=== PATIENT | male | born 1955 | race Caucasian/White ===

== ENCOUNTER 2017-03-22 07:42 | Emergency (ER) | payer SELFPAY ==
[~2017-03-22] VITALS: Ht 167.6 cm; Wt 80.0 kg
[2017-03-22 07:46] VITALS: BP 164/124; PULSE 89; RESP 16; TEMP 98.4; O2SAT 98
[2017-03-22 08:31] LABS: BLOOD, URINE NEG (NEG); GLUCOSE,URINE NEG (NEG); KETONE, URINE 10 mg/dL (NEG); MUCUS URINE MOD /lpf (OCC); NITRITE,URINE NEG (NEG); PH, URINE 5.5 (5.0-8.5); SQUAMOUS EPITHELIAL CELL URINE <1 /hpf (0-5); URINE COLOR YELLOW (YELLW/STRAW)
[2017-03-22 08:32] LABS: COMMENT (UR) CULT NOT INDICATED; CULTURE IF INDICATED CULT NOT INDICATED
[2017-03-22 08:34] LABS: AUTOMATED NEUTROPHIL # 6.4 TH/MM3 (1.8-7.7); BASOPHIL # 0.1 TH/MM3 (0-0.2); BASOPHIL % 0.8 % (0.0-2.0); EOSINOPHIL # 0.1 TH/MM3 (0-0.4); EOSINOPHIL % 0.8 % (0.0-4.0); HEMATOCRIT 43.8 % (39.0-51.0); HEMO FLAGS DIFF FINAL; LYMPH % 17.9 % (9.0-44.0); LYMPHOCYTE # 1.6 TH/MM3 (1.0-4.8); MEAN CELL VOLUME 86.1 FL (80.0-100.0); MEAN CORPUSCULAR HEMOGLOBIN 30.2 PG (27.0-34.0); MEAN CORPUSCULAR HGB CONC 35.1 % (32.0-36.0); MONO % 9.7 % (0.0-8.0); NEUT % 70.8 % (16.0-70.0); PLATELET COUNT 153 TH/MM3 (150-450); RED BLOOD COUNT 5.08 MIL/MM3 (4.50-5.90); RED CELL DISTRIBUTION WIDTH 14.1 % (11.6-17.2)
[2017-03-22 08:44] LABS: BICARBONATE 22.7 MEQ/L (21.0-32.0); POTASSIUM 4.1 MEQ/L (3.5-5.1)
--- NOTE | 2017-03-22 09:02 | PD ---
HPI Chief Complaint: Psychiatric Symptoms Time Seen by Provider: 09:02 Travel History International Travel<30 days: No Contact w/Intl Traveler<30days: No Traveled to known affect area: No History of Present Illness HPI 61-year-old male came to the emergency room with history of mood swings that out -of-control, nightmares and occasionally hearing voices for past few days. Patient says he was discharged from the long-term and was started on some new medications for his bipolar disorder and not agreeing with him. He used to be on divalproex and trazodone. For some reason those were stopped and he was started on different medications. He does not have a psychiatrist or primary care physician. No suicidal or homicidal ideations. Vital signs otherwise stable. [facility] Past Medical History Narrative Medical List of his past medical, surgical, social and family history reviewed from the nursing note. Hx Anticoagulant Therapy: No ADD: Yes ADHD: Yes Asthma: Yes Bipolar Disorder: Yes Depression: Yes Cardiovascular Problems: No Chemotherapy: No COPD: Yes Cerebrovascular Accident: No Diabetes: No Diminished Hearing: No Respiratory: Yes (COPD) Immunizations Current: Yes Past Surgical History Hysterectomy: No Social History Alcohol Use: Yes Tobacco Use: Yes (2 PPD) Substance Use: No (UNABLE TO ASSESS) Allergies-Medications (Allergen,Severity, Reaction): Coded Allergies: No Known Allergies (Unverified , 03/22/17) Comments No known drug allergies. Reported Meds & Prescriptions Reported Meds & Active Scripts Active Depakote DR (Divalproex Sodium) 500 Mg Tabdr 500 Mg PO DAILY PRN 14 Days Trazodone (Trazodone HCl) 150 Mg Tablet 150 Mg PO HS PRN 14 Days Reported Trazodone (Trazodone HCl) 150 Mg Tablet 150 Mg PO HS Depakote DR (Divalproex Sodium) 500 Mg Tabdr 500 Mg PO BID Narrative Medication List of his home medications reviewed from the nursing note. Review of Systems Except as stated in HPI: all other systems reviewed are Neg Physical Exam Narrative GENERAL: Awake, alert, no obvious distress SKIN: Focused skin assessment warm/dry. HEAD: Atraumatic. Normocephalic. EYES: Pupils equal and round. No scleral icterus. No injection or drainage. ENT: No nasal bleeding or discharge. Mucous membranes pink and moist. NECK: Trachea midline. No JVD. CARDIOVASCULAR: Regular rate and rhythm. No murmur appreciated. RESPIRATORY: No accessory muscle use. Clear to auscultation. Breath sounds equal bilaterally. GASTROINTESTINAL: Abdomen soft, non-tender, nondistended. Hepatic and splenic margins not palpable. MUSCULOSKELETAL: No obvious deformities. No clubbing. No cyanosis. No edema. NEUROLOGICAL: Awake and alert. No obvious cranial nerve deficits. Motor grossly within normal limits. Normal speech. PSYCHIATRIC: Appropriate mood and affect; insight and judgment normal. Data Data Last Documented VS Vital Signs Date Time Temp Pulse Resp B/P (MAP) Pulse Ox O2 Delivery O2 Flow Rate FiO2 03/22/17 11:05 59 17 157/77 (103) 97 03/22/17 09:09 97.8 Room Air Orders Orders Complete Blood Count With Diff (03/22/17 08:04) Basic Metabolic Panel (Bmp) (03/22/17 08:04) Drug Screen, Random Urine (03/22/17 08:04) Urinalysis - C+S If Indicated (03/22/17 08:04) Psych Screen (03/22/17 10:07) Labs Laboratory Tests Test 03/22/17 08:15 03/22/17 08:20 03/23/17 17:20 Urine Color YELLOW Urine Turbidity HAZY Urine pH 5.5 Urine Specific [place] 1.033 Urine Protein TRACE mg/dL Urine Glucose (UA) NEG mg/dL Urine Ketones 10 mg/dL Urine Occult Blood NEG Urine Nitrite NEG Urine Bilirubin NEG Urine Urobilinogen 2.0 MG/DL Urine Leukocyte Esterase NEG Urine RBC LESS THAN 1 /hpf Urine WBC 1 /hpf Urine Squamous Epithelial Cells <1 /hpf Urine Amorphous Sediment RARE Urine Mucus MOD /lpf Microscopic Urinalysis Comment CULT NOT INDICATED Urine Opiates Screen NEG Urine Barbiturates Screen NEG Urine Amphetamines Screen NEG Urine Benzodiazepines Screen NEG Urine Cocaine Screen NEG Urine Cannabinoids Screen POS White Blood Count 9.0 TH/MM3 Red Blood Count 5.08 MIL/MM3 Hemoglobin 15.3 GM/DL Hematocrit 43.8 % Mean Corpuscular Volume 86.1 FL Mean Corpuscular Hemoglobin 30.2 PG Mean Corpuscular Hemoglobin Concent 35.1 % Red Cell Distribution Width 14.1 % Platelet Count 153 TH/MM3 Mean Platelet Volume 9.7 FL Neutrophils (%) (Auto) 70.8 % Lymphocytes (%) (Auto) 17.9 % Monocytes (%) (Auto) 9.7 % Eosinophils (%) (Auto) 0.8 % Basophils (%) (Auto) 0.8 % Neutrophils # (Auto) 6.4 TH/MM3 Lymphocytes # (Auto) 1.6 TH/MM3 Monocytes # (Auto) 0.9 TH/MM3 Eosinophils # (Auto) 0.1 TH/MM3 Basophils # (Auto) 0.1 TH/MM3 CBC Comment DIFF FINAL Differential Comment Blood Urea Nitrogen 18 MG/DL Creatinine 0.92 MG/DL Random Glucose 95 MG/DL Calcium Level 8.9 MG/DL Sodium Level 139 MEQ/L Potassium Level 4.1 MEQ/L Chloride Level 106 MEQ/L Carbon Dioxide Level 22.7 MEQ/L Anion Gap 10 MEQ/L Estimat Glomerular Filtration Rate 83 ML/MIN Lab Scanned Report Lab Reports - Other [id number] [facility] Medical Decision Making Medical Screen Exam Complete: Yes Emergency Medical Condition: Yes Medical Record Reviewed: Yes Differential Diagnosis Prescription refill, medication adjustment Narrative Course 10:30 AM patient was seen by the psych nurse practitioner. She has given the prescription refills. Patient had blood test done and medically cleared earlier. Patient has been given [facility] information and been told to go there tomorrow morning to get checked. He will be discharged home. Procedures EKG Prior to Arrival: No Diagnosis Primary Impression: Prescription refill Additional Impression: Mood swings Referrals: Primary Care Physician Additional Instructions: Please fill the medication prescription that has been given to you from the emergency room. Go to [facility] as per the directions given to you from the emergency room. Return to the ER if the symptoms worsen on any other new concerns. Do not take the other psych medications that were given to you previously from long-term. Med/Other Pt SpecificInfo: Prescription(s) given Scripts Divalproex DR (Depakote DR) 500 Mg Tabdr 500 MG PO DAILY Y for ANXIETY AND/OR AGITATION for 14 Days, #15 TAB 0 Refills Prov: FlynnHaleys Denise Dowell [facility] 03/22/17 Trazodone (Trazodone) 150 Mg Tablet 150 MG PO HS Y for ANXIETY AND/OR AGITATION for 14 Days, #30 TAB 0 Refills Prov: Flynn,Alma Rosa Denise Dowell [facility] 03/22/17 Disposition: 01 DISCHARGE HOME Condition: Stable Jonathan Joy MD Mar 22, 2017 09:02
[2017-03-22] MEDS ORDERED: TRAZ1TAB45 PO ×2 (09:08→10:24)
[2017-03-22] MEDS ORDERED: DEPA500T PO ×2 (09:08→10:26)
[2017-03-22 09:09] VITALS: BP 158/78; PULSE 76; RESP 19; TEMP 97.8; O2SAT 98
--- NOTE | 2017-03-22 10:21 | PD ---
History of Present Illness Chief Complaint: Psychiatric Symptoms Time Seen by Provider: 10:10 Travel History International Travel<30 Days: No Contact w/Intl Traveler<30days: No Known affected area: No Legal Status Legal Status: Voluntary History of Present Illness: History of Present Illness HPI 61 year old male with psychiatric history of bipolar disorder, mixed, ADHD, released from care home a few days ago who is here for his refill on his psychiatric medications. Reports that he has been stable on Trazodone and Depakote prior to being incarcerated but that he was not given these medications while in care home. He was released from care home with out medication. EMR reviewed. Seen with Refugio, case briefer. He is calm, engaging and cooperative. Casually dressed and maintaining basic hygiene. States that when he does not take his medication he feels like his brain is confused and " jumbled, like a bowl of spaghetti". Speech is clear, logical, normal tone and rhythm. No pressure. No rhett or hypomania. Not depressed. No hallucinations. No suicdal or homicidal ideation, intent or plan. Not agitated but reports feeling on edge. He wants a prescription until he can be seen at [facility] where he has had treatment in the past. Denies that he is using any alcohol. Current toxicology is positive for cannabinoids. PFSH Past Medical History Hx Anticoagulant Therapy: No ADD: Yes ADHD: Yes Asthma: Yes Bipolar Disorder: Yes Depression: Yes Cardiovascular Problems: No Chemotherapy: No COPD: Yes Cerebrovascular Accident: No Diabetes: No Diminished Hearing: No Respiratory: Yes (COPD) Immunizations Current: Yes Past Surgical History Hysterectomy: No Psychiatric History Psychiatric History Hx Psychiatric Treatment: Last seen at [facility] for 7 days in Feb 2016. History of Inpatient Treatment: Yes Guns or firearms in home: No Social History Single male, homeless. Works for [employer]. Hx Alcohol Use: Yes Hx Tobacco Use: Yes (2 PPD) Hx Substance Use: Yes (marijuana last night) Substance Use Type: Alcohol, Marijuana Other Substances Used: States he has had multiple detox admissions but cannot say where or when Hx of Substance Use Treatment: Yes Family Psychiatric History None reported Allergies-Medications (Allergen,Severity, Reaction): Coded Allergies: No Known Allergies (Unverified , 03/22/17) Reported Meds & Prescriptions Reported Meds & Active Scripts Active Reported Trazodone (Trazodone HCl) 150 Mg Tablet 150 Mg PO HS Depakote DR (Divalproex Sodium) 500 Mg Tabdr 500 Mg PO BID Review of Systems Except as stated in HPI: all other systems reviewed are Neg Exam Alert: Yes [place]: Person (ox4) Mood: Calm Affect: Appropriate Speech: Clear, Logical Eye Contact: Normal Memory Intact: Comment (Not impaired) Hallucinations: Other (None at present) Delusions: No Suicidal: Ideation (denies any) Homicidal: Ideation (denies ) Insight/Judgement Fair. Not impaired. MDM Medical Decision Making Medical Record Reviewed: Yes Assessment/Plan 61 year old male with psychiatric history of bipolar disorder, mixed, ADHD, released from care home a few days ago who is here for his refill on his psychiatric medications. Reports that he has been stable prior to being incarcerated. He presents no suicidal or homicidal ideation, intent or plan.He is not psychotic. He is aware of the dangers of combining medication and alcohol. He will follow up with [facility] tomorrow to initiate care. Refugio. case briefer will provide bus passes as well as voucher for the [facility]. Will provide meds until he can be seen at [facility] Orders Orders Complete Blood Count With Diff (03/22/17 08:04) Basic Metabolic Panel (Bmp) (03/22/17 08:04) Drug Screen, Random Urine (03/22/17 08:04) Urinalysis - C+S If Indicated (03/22/17 08:04) Psych Screen (03/22/17 10:07) Results Vital Signs Date Time Temp Pulse Resp B/P (MAP) Pulse Ox O2 Delivery O2 Flow Rate FiO2 03/22/17 09:09 97.8 76 19 158/78 (104) 98 Room Air 03/22/17 09:01 19 03/22/17 07:46 98.4 89 16 164/124 (137) 98 Laboratory Tests Test 03/22/17 08:15 03/22/17 08:20 Urine Color YELLOW Urine Turbidity HAZY Urine pH 5.5 Urine Specific [place] 1.033 Urine Protein TRACE Urine Glucose (UA) NEG Urine Ketones 10 Urine Occult Blood NEG Urine Nitrite NEG Urine Bilirubin NEG Urine Urobilinogen 2.0 Urine Leukocyte Esterase NEG Urine RBC LESS THAN 1 Urine WBC 1 Urine Squamous Epithelial Cells <1 Urine Amorphous Sediment RARE Urine Mucus MOD Microscopic Urinalysis Comment CULT NOT INDICATED Urine Opiates Screen NEG Urine Barbiturates Screen NEG Urine Amphetamines Screen NEG Urine Benzodiazepines Screen NEG Urine Cocaine Screen NEG Urine Cannabinoids Screen POS White Blood Count 9.0 Red Blood Count 5.08 Hemoglobin 15.3 Hematocrit 43.8 Mean Corpuscular Volume 86.1 Mean Corpuscular Hemoglobin 30.2 Mean Corpuscular Hemoglobin Concent 35.1 Red Cell Distribution Width 14.1 Platelet Count 153 Mean Platelet Volume 9.7 Neutrophils (%) (Auto) 70.8 Lymphocytes (%) (Auto) 17.9 Monocytes (%) (Auto) 9.7 Eosinophils (%) (Auto) 0.8 Basophils (%) (Auto) 0.8 Neutrophils # (Auto) 6.4 Lymphocytes # (Auto) 1.6 Monocytes # (Auto) 0.9 Eosinophils # (Auto) 0.1 Basophils # (Auto) 0.1 CBC Comment DIFF FINAL Differential Comment Blood Urea Nitrogen 18 Creatinine 0.92 Random Glucose 95 Calcium Level 8.9 Sodium Level 139 Potassium Level 4.1 Chloride Level 106 Carbon Dioxide Level 22.7 Anion Gap 10 Estimat Glomerular Filtration Rate 83 Diagnosis Primary Impression: bipolar disorder Psychiatrically Cleared: Yes Additional Instructions: Follow up with [facility] on 03/23/2017 at 0730. Med/ Other Pt Specific Info: Prescription(s) given Prescriptions Divalproex DR (Depakote DR) 500 Mg Tabdr 500 MG PO DAILY Y for ANXIETY AND/OR AGITATION for 14 Days, #15 TAB 0 Refills Prov: Alma Rosa Flynn [facility] 03/22/17 Trazodone (Trazodone) 150 Mg Tablet 150 MG PO HS Y for ANXIETY AND/OR AGITATION for 14 Days, #30 TAB 0 Refills Prov: Alma Rosa Flynna [facility] 03/22/17 Alma Rosa Flynna [facility] Mar 22, 2017 10:21
[2017-03-22 11:05] VITALS: BP 157/77
== END 2017-03-22 11:06 | disposition home or self-care (01) ==
LOC: NEPD 07:42
DX: F31.9 Bipolar disorder, unspecified (principal); F90.9 Attention-deficit hyperactivity disorder, unspecified type; J45.909 Unspecified asthma, uncomplicated; J44.9 Chronic obstructive pulmonary disease, unspecified; F17.200 Nicotine dependence, unspecified, uncomplicated; Z59.0 Homelessness; Z79.899 Other long term (current) drug therapy; Z76.0 Encounter for issue of repeat prescription
CPT/HCPCS: 80048; 80307; 81001; 85025; 99284

== ENCOUNTER 2017-06-04 13:23 | Emergency (ER) | payer SELFPAY ==
[~2017-06-04] VITALS: Ht 167.6 cm; Wt 78.0 kg
[~2017-06-04 13:23] MED LIST: DEPA500T PO; TRAZ1TAB14 PO
[2017-06-04 13:24] VITALS: BP 146/87; PULSE 106; RESP 15; TEMP 98.2; O2SAT 99
--- NOTE | 2017-06-04 13:58 | PD ---
HPI Chief Complaint: Laceration/Skin Injury Time Seen by Provider: 13:36 Travel History International Travel<30 days: No Contact w/Intl Traveler<30days: No Traveled to known affect area: No History of Present Illness HPI This patient complains of a leg infection. He has a local alcoholic who 3 days ago was using a drill and it slipped while using it. The handle of the drill, not the bit, hit him in the left whyte and he obtained a puncture wound. Over the last couple of days has become hot and red and swollen and painful. He denies fever. He drank a couple of beers today. Symptoms severity is moderate. No alleviating factors. No exacerbating factors. PFSH Past Medical History Hx Anticoagulant Therapy: No ADD: Yes ADHD: Yes Asthma: Yes Bipolar Disorder: Yes Depression: Yes Cardiovascular Problems: No Chemotherapy: No COPD: Yes Cerebrovascular Accident: No Diabetes: No Diminished Hearing: No Psychiatric: Yes Respiratory: Yes (COPD) Immunizations Current: Yes Tetanus Vaccination: > 5 Years ?: Not Past Surgical History Hysterectomy: No Social History Alcohol Use: Yes Tobacco Use: Yes (1 PPD) Substance Use: Yes (marijuana ) Allergies-Medications (Allergen,Severity, Reaction): Coded Allergies: No Known Allergies (Verified Adverse Reaction, Unknown, 06/04/17) Reported Meds & Prescriptions Reported Meds & Active Scripts Active Reported Trazodone (Trazodone HCl) 150 Mg Tablet 150 Mg PO HS Depakote DR (Divalproex Sodium) 500 Mg Tabdr 500 Mg PO BID Review of Systems General / Constitutional: No: Fever Eyes: No: Visual changes HENT: No: Headaches Cardiovascular: No: Chest Pain or Discomfort Respiratory: No: Shortness of Breath Gastrointestinal: No: Abdominal Pain Genitourinary: No: Dysuria Musculoskeletal: Positive: Edema, Pain Skin: Positive Change in Pigmentation, No Rash Neurologic: No: Weakness Psychiatric: Positive: Substance Abuse, No: Depression Endocrine: No: Polydipsia Hematologic/Lymphatic: No: Easy Bruising Physical Exam Narrative GENERAL: Well-nourished, well-developed patient in no apparent distress. SKIN: Focused skin assessment reveals no rash and nodules. Skin is Warm and dry. HEAD: Atraumatic. Normocephalic. EYES: Pupils equal and round. No scleral icterus. No injection or drainage. ENT: No nasal bleeding or discharge. Mucous membranes pink and moist. NECK: Trachea midline. No JVD. CARDIOVASCULAR: Regular rate and rhythm. No murmur appreciated. RESPIRATORY: No accessory muscle use. Clear to auscultation. Breath sounds equal bilaterally. GASTROINTESTINAL: Abdomen soft, non-tender, nondistended. Hepatic and splenic margins not palpable. MUSCULOSKELETAL: No obvious deformities. No clubbing. No cyanosis. Left leg between his ankle and knee is erythematous and tender and warm and has pitting edema. There is a puncture wound that scabbed over in the center of the proximal tibia. NEUROLOGICAL: Awake and alert. No obvious cranial nerve deficits. Motor grossly within normal limits. Normal speech. PSYCHIATRIC: Appropriate mood and affect; insight and judgment poor. Data Data Last Documented VS Vital Signs Date Time Temp Pulse Resp B/P (MAP) Pulse Ox O2 Delivery O2 Flow Rate FiO2 06/04/17 13:45 92 16 06/04/17 13:24 98.2 146/87 (106) 99 Orders Orders Iv Access Insert/Monitor (06/04/17 13:49) Vancomycin Inj (Vancomycin Inj) (06/04/17 14:00) Complete Blood Count With Diff (06/04/17 13:49) Basic Metabolic Panel (Bmp) (06/04/17 13:49) Alcohol (Ethanol) (06/04/17 13:49) Labs Laboratory Tests Test 06/04/17 13:55 White Blood Count 16.5 TH/MM3 Red Blood Count 4.96 MIL/MM3 Hemoglobin 15.7 GM/DL Hematocrit 45.7 % Mean Corpuscular Volume 92.1 FL Mean Corpuscular Hemoglobin 31.6 PG Mean Corpuscular Hemoglobin Concent 34.3 % Red Cell Distribution Width 13.8 % Platelet Count 95 TH/MM3 Mean Platelet Volume 9.8 FL Neutrophils (%) (Auto) 87.2 % Lymphocytes (%) (Auto) 4.2 % Monocytes (%) (Auto) 8.1 % Eosinophils (%) (Auto) 0.3 % Basophils (%) (Auto) 0.2 % Neutrophils # (Auto) 14.4 TH/MM3 Lymphocytes # (Auto) 0.7 TH/MM3 Monocytes # (Auto) 1.3 TH/MM3 Eosinophils # (Auto) 0.0 TH/MM3 Basophils # (Auto) 0.0 TH/MM3 CBC Comment AUTO DIFF Differential Comment AUTO DIFF CONFIRMED Blood Urea Nitrogen 14 MG/DL Creatinine 0.90 MG/DL Random Glucose 87 MG/DL Calcium Level 8.7 MG/DL Sodium Level 130 MEQ/L Potassium Level 4.1 MEQ/L Chloride Level 96 MEQ/L Carbon Dioxide Level 24.2 MEQ/L Anion Gap 10 MEQ/L Estimat Glomerular Filtration Rate 86 ML/MIN Ethyl Alcohol Level 64 MG/DL [facility] Medical Decision Making Medical Screen Exam Complete: Yes Emergency Medical Condition: Yes Medical Record Reviewed: Yes Differential Diagnosis Cellulitis, abscess, dermatitis Narrative Course I have reviewed the patient's electronic medical record. Patient's been here multiple times for alcohol intoxication IV placed CBC shows some leukocytosis as expected Metabolic profile shows some hyponatremia I gave her 1 g IV vancomycin Alcohol level is 64 We discussed outpatient versus inpatient care. Patient wants no part of staying in the hospital. He wants to go he is very impatient and pacing in the room. He is demanding discharge. I think it's reasonable to try as an outpatient but I advised him to return in 48 hours if he is taking his antibiotics and not improving. 10 days of Bactrim DS and doxycycline prescribed He has normal vital signs and does not look septic or toxic He has no tachycardia or hypotension or fever Diagnosis Primary Impression: Left leg cellulitis Additional Impressions: Puncture wound Alcohol dependence Qualified Codes: F10.20 - Alcohol dependence, uncomplicated Additional Instructions: The patient was advised to follow up with their physician and return if they worsen. Med/Other Pt SpecificInfo: Prescription(s) given Scripts Doxycycline Hyclate (Doxycycline Hyclate) 100 Mg Cap 100 MG PO BID for Infection, #20 CAP 0 Refills Prov: Rasta Poole MD 06/04/17 Sulfamethoxazole-Trimethoprim (Bactrim DS) 800-160 Mg Tab 1 TAB PO BID for Infection, #20 TAB 0 Refills Prov: Rasta Poole MD 06/04/17 Disposition: 01 DISCHARGE HOME Condition: Stable Rasta Poole MD Jun 04, 2017 13:58
[2017-06-04] MEDS ORDERED: VANCOMYCIN INJ 1,000 MG in SODIUM CHLOR 0.9% 250 ML INJ 250 ML IV ONE (14:00)
[2017-06-04 14:29] LABS: AUTOMATED NEUTROPHIL # 14.4 TH/MM3 (1.8-7.7); BASOPHIL % 0.2 % (0.0-2.0); EOSINOPHIL % 0.3 % (0.0-4.0); HEMATOCRIT 45.7 % (39.0-51.0); LYMPH % 4.2 % (9.0-44.0); LYMPHOCYTE # 0.7 TH/MM3 (1.0-4.8); MEAN CELL VOLUME 92.1 FL (80.0-100.0); MEAN CORPUSCULAR HEMOGLOBIN 31.6 PG (27.0-34.0); MEAN CORPUSCULAR HGB CONC 34.3 % (32.0-36.0); MONO % 8.1 % (0.0-8.0); NEUT % 87.2 % (16.0-70.0); PLATELET COUNT 95 TH/MM3 (150-450); RED BLOOD COUNT 4.96 MIL/MM3 (4.50-5.90); RED CELL DISTRIBUTION WIDTH 13.8 % (11.6-17.2); WHITE BLOOD COUNT 16.5 TH/MM3 (4.0-11.0)
[2017-06-04 14:30] LABS: HEMO FLAGS AUTO DIFF
[2017-06-04 14:42] LABS: BICARBONATE 24.2 MEQ/L (21.0-32.0); POTASSIUM 4.1 MEQ/L (3.5-5.1)
[2017-06-04 15:06] LABS: SCAN/DIFF AUTO DIFF CONFIRMED
[2017-06-04] MEDS ORDERED: DOXY100C PO (16:00)
[2017-06-04] MEDS ORDERED: BACT800T5 PO (16:00)
[2017-06-04] MEDS ORDERED: TETANUS/DIPHTHERIA TOXOID ADULT 0.5 ML VIAL IM ONE (16:15)
[2017-06-04 16:17] VITALS: BP 126/81; TEMP 97.8
== END 2017-06-04 16:17 | disposition home or self-care (01) ==
LOC: NEPD 13:23
DX: L03.116 Cellulitis of left lower limb (principal); F10.20 Alcohol dependence, uncomplicated; D72.829 Elevated white blood cell count, unspecified; E87.1 Hypo-osmolality and hyponatremia; F90.9 Attention-deficit hyperactivity disorder, unspecified type; F31.9 Bipolar disorder, unspecified; J44.9 Chronic obstructive pulmonary disease, unspecified; F17.200 Nicotine dependence, unspecified, uncomplicated; Z23 Encounter for immunization
CPT/HCPCS: 80048; 80307; 85025; 90471; 90714; 96365; 99284; J3370; J7050

== ENCOUNTER 2017-06-21 06:03 | Inpatient (IN) | payer SELFPAY ==
[~2017-06-21] VITALS: Ht 167.6 cm; Wt 80.0 kg
[~2017-06-21 06:03] MED LIST changes: +BACT800T5 PO; +DOXY100C PO
[2017-06-21 06:05] VITALS: BP 171/95; PULSE 64; RESP 16; TEMP 98; O2SAT 98
--- NOTE | 2017-06-21 06:19 | PD ---
HPI Chief Complaint: Skin Problem Time Seen by Provider: 06:17 Travel History International Travel<30 days: No Contact w/Intl Traveler<30days: No Traveled to known affect area: No History of Present Illness HPI The patient is a 61 year old male who presents to the [facility] emergency department with a history of left whyte injury that occurred at work when a drill spun out of his hand and hit his leg. He was seen in the ED on 06/04 approximately a day after this occurred when he noticed that it was getting infected. The patient reports that blood work was done and he was given IV antibiotic and then discharged home on oral antibiotic. He reports that he completed the course of antibiotic approximately 2 days ago. He reports that it is not painful, however he does have an area of ulceration that is draining yellow fluid. He reports that the area of redness is still present surrounding this ulcer. He reports that the swelling however has improved. He reports that his tetanus was updated when he was seen last in the emergency department. He denies any x-ray being done of the area. On review of systems otherwise, he denies having any recent fevers or chills. He denies having any cough or congestion, neck pain, chest pain, shortness of breath, abdominal pain, vomiting , diarrhea, urinary symptoms, or neurologic symptoms. The patient reports that he has been changing his dressing daily. He denies having a primary care physician. [facility] Past Medical History Narrative Medical The patient's past medical history is significant for COPD, daily alcohol intake , tobacco abuse, bipolar disorder Hx Anticoagulant Therapy: No ADD: Yes ADHD: Yes Asthma: Yes Bipolar Disorder: Yes Depression: Yes Cardiovascular Problems: No Chemotherapy: No COPD: Yes Cerebrovascular Accident: No Diabetes: No Diminished Hearing: No Psychiatric: Yes Respiratory: Yes (COPD) Immunizations Current: Yes Past Surgical History Narrative Surgical The patient's past surgical history is unremarkable. Hysterectomy: No Social History Alcohol Use: Yes (3-4 cans of beer daily) Tobacco Use: Yes (2 packs per day) Substance Use: Yes (marijuana ) Allergies-Medications (Allergen,Severity, Reaction): Coded Allergies: No Known Allergies (Verified Adverse Reaction, Unknown, 06/21/17) Reported Meds & Prescriptions Reported Meds & Active Scripts Active Doxycycline Hyclate 100 Mg Cap 100 Mg PO BID Bactrim DS (Sulfamethoxazole-Trimethoprim) 800-160 Mg Tab 1 Tab PO BID Reported Trazodone (Trazodone HCl) 150 Mg Tablet 150 Mg PO HS Depakote DR (Divalproex Sodium) 500 Mg Tabdr 500 Mg PO BID Review of Systems Except as stated in HPI: all other systems reviewed are Neg General / Constitutional: No: Fever Eyes: No: Visual changes HENT: No: Headaches Cardiovascular: No: Chest Pain or Discomfort Respiratory: No: Shortness of Breath Gastrointestinal: No: Abdominal Pain Genitourinary: No: Dysuria Musculoskeletal: No: Pain Skin: Positive Other (redness and swelling to the left whyte), No Rash Neurologic: No: Weakness Psychiatric: No: Depression Endocrine: No: Polydipsia Hematologic/Lymphatic: No: Easy Bruising Physical Exam Narrative General: The patient is well-developed well-nourished male in no acute distress. Head and Neck exam: Head is normocephalic atraumatic. Eyes: EOMI, pupils are equal round and reactive to light. Nose: Midline septum with pink mucous membranes Mouth: Dentition unremarkable. Moist mucus membranes. Posterior oropharynx is not erythematous. No tonsillar hypertrophy. Uvula midline. Airway patent. Neck: No palpable lymphadenopathy. No nuchal rigidity. No thyromegaly. Cardiovascular: Regular rate and rhythm without murmurs, gallops, or rubs. Lungs: Clear to auscultation bilaterally. No wheezes, rhonchi, or rales. Abdomen: Soft, without tenderness to palpation in all 4 quadrants of the abdomen. No guarding, rebound, or rigidity. Normal bowel sounds are audible. No tenderness on palpation of McBurney's point. Extremities: No clubbing, cyanosis, or edema except in the area of interest, the left anterior whyte. The patient has a bandage in place noted. This was gently removed. The patient is noted to have an approximately 2-1/2-3 cm area of ulceration with yellow drainage noted and surrounding erythema, edema along the anterior whyte. There is no significant tenderness on palpation, however there is warmth. There is no fluctuance. There is induration of the skin. 2+ pulses in all 4 extremities. Back: No costovertebral angle tenderness to palpation. Neurologic Exam: Grossly nonfocal. Skin Exam: No other rash noted. Intact skin that is warm and dry. Data Data Last Documented VS Vital Signs Date Time Temp Pulse Resp B/P (MAP) Pulse Ox O2 Delivery O2 Flow Rate FiO2 06/21/17 06:05 98.0 64 16 171/95 (120) 98 Room Air Orders Orders Complete Blood Count With Diff (06/21/17 06:30) Comprehensive Metabolic Panel (06/21/17 06:30) Prothrombin Time / Inr (Pt) (06/21/17 06:30) Act Partial Throm Time (Ptt) (06/21/17 06:30) C-Reactive Protein (Crp) (06/21/17 06:30) Iv Access Insert/Monitor (06/21/17 06:30) Ecg Monitoring (06/21/17 06:30) Oximetry (06/21/17 06:30) Tibia/Fibula (Ap/Lat) (06/21/17 06:30) Wound Care (06/21/17 06:38) Wound Culture And Gram Stain (06/21/17 06:38) MDM Medical Decision Making Medical Screen Exam Complete: Yes Emergency Medical Condition: Yes Medical Record Reviewed: Yes Differential Diagnosis Infected skin ulcer, versus hematoma, versus cellulitis, versus osteomyelitis Narrative Course During the course of the patients emergency department visit, the patients history, examination, and differential diagnosis were reviewed with the patient. The patient was placed on a personnel monitor with oximetry and frequent blood pressure monitoring. The patient had IV access obtained and blood work sent for analysis. The patient's electronic medical record was reviewed and the patient was discharged home with doxycycline and Bactrim for 10 days. The patient did have blood work done during his evaluation that revealed a leukocytosis with a white count of 16.5. The patient's laboratory studies will be repeated. An x-ray of the left fib was ordered to evaluate for possible underlying osteomyelitis. The patient was initially provided normal saline 1 L IV fluid bolus, Zosyn and vancomycin IV. The Patients laboratory studies and imaging studies were pending at the conclusion of my shift. The patient's case will be checked out to the oncoming emergency physician to disposition the patient based on the conclusion of the patient's workup. I anticipate that the patient will be admitted to the hospital for continued management as he has completed a full course of antibiotic without improvement. Diagnosis Primary Impression: Infected ulcer of skin Qualified Codes: L98.492 - Non-pressure chronic ulcer of skin of other sites with fat layer exposed; L08.9 - Local infection of the skin and subcutaneous tissue, unspecified Additional Impression: Cellulitis Qualified Codes: L03.116 - Cellulitis of left lower limb Admitting Information Admitting Physician Requests: Admit Greer Ferrell MD Jun 21, 2017 06:19
--- NOTE | 2017-06-21 06:49 | RADRPT ---
EXAM DATE/TIME: 06/21/2017 06:34 [facility] COMPARISON: No previous studies available for comparison. INDICATIONS : Left lower leg inflammation and open sore. Patient states he dropped a drill on his leg one week ago. MEDICAL HISTORY : None. SURGICAL HISTORY : None. ENCOUNTER: Initial ACUITY: 4 - 6 days PAIN SCORE: 7/10 LOCATION: Left tibia/fibula. FINDINGS: Two view examination of the left tibia demonstrates no evidence of fracture or dislocation. Bony min eralization is normal. There is focal lucency/defect seen in the anterior proximal tibial soft tissue s. There appears to be surrounding soft tissue swelling in this region. CONCLUSION: Anterior superior lower leg soft tissue injury. No bony abnormality is seen. Maxi Contreras MD on June 21, 2017 at 6:47 Board Certified Radiologist. This report was verified electronically.
[2017-06-21 06:59] LABS: AUTOMATED NEUTROPHIL # 4.4 TH/MM3 (1.8-7.7); BASOPHIL # 0.1 TH/MM3 (0-0.2); BASOPHIL % 1.6 % (0.0-2.0); EOSINOPHIL # 0.1 TH/MM3 (0-0.4); EOSINOPHIL % 1.4 % (0.0-4.0); HEMATOCRIT 44.5 % (39.0-51.0); HEMO FLAGS DIFF FINAL; LYMPH % 21.8 % (9.0-44.0); LYMPHOCYTE # 1.5 TH/MM3 (1.0-4.8); MEAN CELL VOLUME 90.5 FL (80.0-100.0); MEAN CORPUSCULAR HEMOGLOBIN 31.7 PG (27.0-34.0); MONO % 12.8 % (0.0-8.0); NEUT % 62.4 % (16.0-70.0); PLATELET COUNT 298 TH/MM3 (150-450); RED BLOOD COUNT 4.91 MIL/MM3 (4.50-5.90); RED CELL DISTRIBUTION WIDTH 13.6 % (11.6-17.2); WHITE BLOOD COUNT 7.1 TH/MM3 (4.0-11.0)
[2017-06-21] MEDS ORDERED: PIPERACIL-TAZO 3.375 GM PREMIX 50 ML IV ONE (07:00)
[2017-06-21] MEDS ORDERED: SODIUM CHLOR 0.9% 1000 ML INJ 1,000 ML IV ONE (07:00)
[2017-06-21] MEDS ORDERED: VANCOMYCIN INJ 1,000 MG in SODIUM CHLOR 0.9% 250 ML INJ 250 ML IV ONE (07:00)
[2017-06-21 07:11] LABS: ALT (GPT) 24 U/L (12-78); ANION GAP 7 MEQ/L (5-15); APTT (PATIENT) 25.9 SEC (24.3-30.1); AST (GOT) 16 U/L (15-37); BICARBONATE 27.7 MEQ/L (21.0-32.0); BLOOD UREA NITROGEN 8 MG/DL (7-18); CHLORIDE 101 MEQ/L (98-107); GLOMERULAR FILTRATION RATE 107 ML/MIN (>89); INTERNATIONAL NORMALIZED RATIO 0.9 RATIO; POTASSIUM 4.6 MEQ/L (3.5-5.1); PROTHROMBIN TIME - PATIENT 10.3 SEC (9.8-11.6); SODIUM (NA) 136 MEQ/L (136-145)
[2017-06-21 07:13] LABS: ALKALINE PHOSPHATASE 75 U/L (45-117); TOTAL BILIRUBIN ADULT 0.2 MG/DL (0.2-1.0)
--- NOTE | 2017-06-21 07:59 | PD ---
Physical Exam Date Seen by Provider: Jun 21, 2017 Time Seen by Provider: 07:00 Narrative Patient signed out to me at [address] Ferrell, please see Dr. Ferrell's notes for further details. He is here for nonhealing wound of the left leg, cellulitis surrounding it, failed outpatient therapy. Laboratory Tests Test 06/21/17 06:50 Monocytes (%) (Auto) 12.8 % (0.0-8.0) X-ray did not show any signs of underlying bony involvement. Lab work is unremarkable. However, the left leg wound appears to be worsening and at this point, Dr. Ferrell talked to the patient regarding plans for admission. Patient had been given IV Zosyn and vancomycin. Case is discussed with Dr. Chavira for admission. Data Data Last Documented VS Vital Signs Date Time Temp Pulse Resp B/P (MAP) Pulse Ox O2 Delivery O2 Flow Rate FiO2 06/21/17 06:05 98.0 64 16 171/95 (120) 98 Room Air Orders Orders Complete Blood Count With Diff (06/21/17 06:30) Comprehensive Metabolic Panel (06/21/17 06:30) Prothrombin Time / Inr (Pt) (06/21/17 06:30) Act Partial Throm Time (Ptt) (06/21/17 06:30) C-Reactive Protein (Crp) (06/21/17 06:30) Iv Access Insert/Monitor (06/21/17 06:30) Ecg Monitoring (06/21/17 06:30) Oximetry (06/21/17 06:30) Tibia/Fibula (Ap/Lat) (06/21/17 06:30) Wound Care (06/21/17 06:38) Wound Culture And Gram Stain (06/21/17 06:38) Sodium Chlor 0.9% 1000 Ml Inj (Ns 1000 M (06/21/17 07:00) Piperacil-Tazo 3.375 Gm Premix (Zosyn 3. (06/21/17 07:00) Vancomycin Inj (Vancomycin Inj) (06/21/17 07:00) Admit Order (Ed Use Only) (06/21/17 07:55) Divalproex (Zaida Jesus) (06/21/17 09:00) (Nf) Trazodone (06/21/17 21:00) Labs Laboratory Tests Test 06/21/17 06:50 White Blood Count 7.1 TH/MM3 Red Blood Count 4.91 MIL/MM3 Hemoglobin 15.6 GM/DL Hematocrit 44.5 % Mean Corpuscular Volume 90.5 FL Mean Corpuscular Hemoglobin 31.7 PG Mean Corpuscular Hemoglobin Concent 35.0 % Red Cell Distribution Width 13.6 % Platelet Count 298 TH/MM3 Mean Platelet Volume 8.0 FL Neutrophils (%) (Auto) 62.4 % Lymphocytes (%) (Auto) 21.8 % Monocytes (%) (Auto) 12.8 % Eosinophils (%) (Auto) 1.4 % Basophils (%) (Auto) 1.6 % Neutrophils # (Auto) 4.4 TH/MM3 Lymphocytes # (Auto) 1.5 TH/MM3 Monocytes # (Auto) 0.9 TH/MM3 Eosinophils # (Auto) 0.1 TH/MM3 Basophils # (Auto) 0.1 TH/MM3 CBC Comment DIFF FINAL Differential Comment Prothrombin Time 10.3 SEC Prothromb Time International Ratio 0.9 RATIO Activated Partial Thromboplast Time 25.9 SEC Blood Urea Nitrogen 8 MG/DL Creatinine 0.74 MG/DL Random Glucose 96 MG/DL Total Protein 7.7 GM/DL Albumin 3.4 GM/DL Calcium Level 8.6 MG/DL Alkaline Phosphatase 75 U/L Aspartate Amino Transf (AST/SGOT) 16 U/L Alanine Aminotransferase (ALT/SGPT) 24 U/L Total Bilirubin 0.2 MG/DL Sodium Level 136 MEQ/L Potassium Level 4.6 MEQ/L Chloride Level 101 MEQ/L Carbon Dioxide Level 27.7 MEQ/L Anion Gap 7 MEQ/L Estimat Glomerular Filtration Rate 107 ML/MIN C-Reactive Protein LESS THAN 0.29 MG/DL [facility] Medical Record Reviewed: Yes Supervised Visit with MOODY: No Diagnosis Primary Impression: Infected ulcer of skin Qualified Codes: L98.492 - Non-pressure chronic ulcer of skin of other sites with fat layer exposed; L08.9 - Local infection of the skin and subcutaneous tissue, unspecified Additional Impression: Cellulitis Qualified Codes: L03.116 - Cellulitis of left lower limb Admitting Information Admitting Physician Requests: it Roney Clay MD Jun 21, 2017 07:59
[2017-06-21] MEDS ORDERED: SODIUM CHLORIDE 0.9% FLUSH 10 ML FLUSH IV FLUSH PRN (08:00)
[2017-06-21] MEDS ORDERED: VANCOMYCIN INJ 1,250 MG in SODIUM CHLOR 0.9% 250 ML INJ 250 ML IV SCH (08:00)
[2017-06-21] MEDS ORDERED: MAGNESIUM HYDROXIDE SUSP 30 ML CUP PO PRN (08:00)
[2017-06-21] MEDS ORDERED: NALOXONE HCL 0.4 MG/ML AMP IV PUSH PRN (08:00)
[2017-06-21] MEDS ORDERED: RESP: ALBUTEROL 2.5 MG/IPRATROPIUM 0.5 MG NEB (PRN) NEB ×2 (08:00→14:00)
[2017-06-21] MEDS ORDERED: ACETAMINOPHEN 325 MG TAB PO PRN ×2 (08:00)
[2017-06-21] MEDS ORDERED: Vancomycin Consult Pharmacy 1 EA OTHER SCH (08:00)
[2017-06-21] MEDS ORDERED: ONDANSETRON HCL 4 MG/2 ML VIAL IVP PRN (08:00)
[2017-06-21] MEDS ORDERED: ENALAPRILAT 2.5 MG/2 ML VIAL IV PUSH PRN (08:00)
[2017-06-21 08:14] VITALS: BP 148/85; PULSE 65; RESP 20; TEMP 98.3; O2SAT 98
[2017-06-21] MEDS: SODIUM CHLORIDE 0.9% FLUSH 10 ML FLUSH IV FLUSH SCH ×2 (09:00→20:54)
[2017-06-21] MEDS: VANCOMYCIN INJ 1,250 MG in SODIUM CHLOR 0.9% 250 ML INJ 250 ML IV SCH ×2 (09:09→20:56)
[2017-06-21] MEDS: LACTOBACILLUS ACIDOPHILUS TAB PO SCH ×2 (09:09→20:53)
[2017-06-21] MEDS: ENOXAPARIN SODIUM 40 MG/0.4 ML SYRINGE SQ SCH (09:09)
[2017-06-21] MEDS: ACETAMINOPHEN/HYDROcodone 325 MG/5 MG TAB PO PRN ×3 (09:10→20:53)
[2017-06-21] MEDS: DIVALPROEX DR 500 MG TABEC PO SCH ×2 (09:47→20:52)
[2017-06-21 12:44] VITALS: BP 128/80; PULSE 69; RESP 16; O2SAT 96
[2017-06-21 13:50] VITALS: BP 126/66; PULSE 67; RESP 18; TEMP 97.6; O2SAT 97
[2017-06-21] MEDS ORDERED: FLUMAZENIL 0.5 MG/5 ML VIAL IV PUSH PRN (14:00)
[2017-06-21] MEDS ORDERED: LORazepam 1 MG TAB PO PRN (14:00)
[2017-06-21] MEDS ORDERED: LORazepam 2 MG/ML VIAL IV PUSH PRN ×4 (14:00)
[2017-06-21] MEDS ORDERED: LORazepam 2 MG TAB PO PRN (14:00)
[2017-06-21] MEDS ORDERED: cloNIDine HCL 0.1 MG TAB PO PRN (14:00)
--- NOTE | 2017-06-21 14:03 | HHI.HP ---
HPI Service [facility] Primary Care Physician No Primary Care Physician Admission Diagnosis left leg cellulitis, nonhealing wound, failed outpatient therapy Diagnoses: (1) Failure of outpatient treatment (2) Infected ulcer of skin (3) Cellulitis (4) COPD with exacerbation (5) Tobacco dependence Chief Complaint: Left lower extremity pain Travel History International Travel<30 Days: No Contact w/Intl Traveler <30 Da: No Traveled to Known Affected Are: No History of Present Illness 61-year-old man with a history of bipolar disorder, ADHD presented to the ED for evaluation of painful nonhealing left lower extremity wound 2 weeks duration. patient states, he initially injured himself at work when a drill spun out of his hand and hit his left left over 2 weeks ago. On 06/04/17, he presented to the ED one day after that accident for evaluation of what looked like an infected wound . He was discharged home on both doxy and Bactrim 14 days duration, which patient completed 2 days ago. However per patient's he has noticed an increase and worsening area of ulceration associated with drainage of yellow fluid. This has been also associated with swelling. Denies any febrile episodes. He denies any chest pain or shortness of breath. Review of Systems Except as stated in HPI: all other systems reviewed are Neg Past Family Social History Past Medical History COPD ADHD Bipolar disorder Past Surgical History Left mandibular surgery Right shoulder surgery Right hip surgery Reported Medications Doxycycline Hyclate 100 Mg Cap 100 Mg PO BID Bactrim DS (Sulfamethoxazole-Trimethoprim) 800-160 Mg Tab 1 Tab PO BID Trazodone (Trazodone HCl) 150 Mg Tablet 150 Mg PO HS Depakote DR (Divalproex Sodium) 500 Mg Tabdr 500 Mg PO BID Allergies: Coded Allergies: No Known Allergies (Verified Adverse Reaction, Unknown, 06/21/17) Family History Father with a history of diabetes type 2 Mother from complication of her cimetidine disease Social History Alcohol Use: Yes (3-4 cans of beer daily) Tobacco Use: Yes (2 packs per day) Substance Use: Yes (marijuana ) Physical Exam Vital Signs Vital Signs Date Time Temp Pulse Resp B/P (MAP) Pulse Ox O2 Delivery O2 Flow Rate FiO2 06/21/17 13:50 97.6 67 18 126/66 (86) 97 06/21/17 12:44 69 16 128/80 (96) 96 Room Air 06/21/17 08:14 98.3 65 20 148/85 (106) 98 Room Air 06/21/17 06:05 98.0 64 16 171/95 (120) 98 Room Air Physical Exam GENERAL: This is a well-nourished, well-developed patient, in no apparent distress. SKIN: No rashes, ecchymoses or lesions. Cool and dry.LLE with 2-1/2-3 cm area of ulceration with yellow drainage noted and surrounding erythema, edema along the anterior whyte HEAD: Atraumatic. Normocephalic. No temporal or scalp tenderness. EYES: Pupils equal round and reactive. Extraocular motions intact. No scleral icterus. No injection or drainage. ENT: Nose without bleeding, purulent drainage or septal hematoma. Throat without erythema, tonsillar hypertrophy or exudate. Uvula midline. Airway patent. NECK: Trachea midline. No JVD or lymphadenopathy. Supple, nontender, no meningeal signs. CARDIOVASCULAR: Regular rate and rhythm without murmurs, gallops, or rubs. RESPIRATORY: Clear to auscultation. Breath sounds decrease bilaterally. + Expiratory wheezes GASTROINTESTINAL: Abdomen soft, non-tender, nondistended. No hepato-splenomegaly , or palpable masses. No guarding. MUSCULOSKELETAL: Extremities without clubbing, cyanosis, or edema. No joint tenderness, effusion, or edema noted. No calf tenderness. Negative Homans sign bilaterally. NEUROLOGICAL: Awake and alert. Cranial nerves II through XII intact. Motor and sensory grossly within normal limits. Five out of 5 muscle strength in all muscle groups. Normal speech. Laboratory Laboratory Tests Test 06/21/17 06:50 White Blood Count 7.1 Red Blood Count 4.91 Hemoglobin 15.6 Hematocrit 44.5 Mean Corpuscular Volume 90.5 Mean Corpuscular Hemoglobin 31.7 Mean Corpuscular Hemoglobin Concent 35.0 Red Cell Distribution Width 13.6 Platelet Count 298 Mean Platelet Volume 8.0 Neutrophils (%) (Auto) 62.4 Lymphocytes (%) (Auto) 21.8 Monocytes (%) (Auto) 12.8 Eosinophils (%) (Auto) 1.4 Basophils (%) (Auto) 1.6 Neutrophils # (Auto) 4.4 Lymphocytes # (Auto) 1.5 Monocytes # (Auto) 0.9 Eosinophils # (Auto) 0.1 Basophils # (Auto) 0.1 CBC Comment DIFF FINAL Differential Comment Prothrombin Time 10.3 Prothromb Time International Ratio 0.9 Activated Partial Thromboplast Time 25.9 Blood Urea Nitrogen 8 Creatinine 0.74 Random Glucose 96 Total Protein 7.7 Albumin 3.4 Calcium Level 8.6 Alkaline Phosphatase 75 Aspartate Amino Transf (AST/SGOT) 16 Alanine Aminotransferase (ALT/SGPT) 24 Total Bilirubin 0.2 Sodium Level 136 Potassium Level 4.6 Chloride Level 101 Carbon Dioxide Level 27.7 Anion Gap 7 Estimat Glomerular Filtration Rate 107 C-Reactive Protein LESS THAN 0.29 Date/Time Source Procedure Growth Status 06/21/17 08:35 Wound Leg Gram Stain Pending Received 06/21/17 08:35 Wound Leg Wound Culture Pending Received Result Diagram: 06/21/17 0650 06/21/1750 Imaging Last Impressions Tibia/Fibula X-Ray 06/21/1730 Signed Impressions: Service Date/Time: Wednesday, June 21, 2017 06:34 - CONCLUSION: Anterior superior lower leg soft tissue injury. No bony abnormality is seen. MD Rubio Schusteri VTE Risk Assessment Chinrini VTE Risk Assessment: Mod/High Risk (score >= 2) Caprini Risk Assessment Model Point Value = 1 Point Value = 2 Point Value = 3 Point Value = 5 Age 41-60 Minor surgery BMI > 25 kg/m2 Swollen legs Varicose veins or History of unexplained or recurrent spontaneous Oral contraceptives or hormone replacement Sepsis (< 1 month) Serious lung disease, including pneumonia (< 1 month) Abnormal pulmonary function Acute myocardial infarction Congestive heart failure (< 1 month) History of inflammatory bowel disease Medical patient at bed rest Age 61-74 Arthroscopic surgery Major open surgery (> 45 min) Laparoscopic surgery (> 45 min) Malignancy Confined to bed (> 72 hours) Immobilizing plaster cast Central venous access Age >= 75 History of VTE Family history of VTE Factor V Leiden Prothrombin [id number] Lupus anticoagulant Anticardiolipin antibodies Elevated serum homocysteine Heparin-induced thrombocytopenia Other congenital or acquired thrombophilia Stroke (< 1 month) Elective arthroplasty Hip, pelvis, or leg fracture Acute spinal cord injury (< 1 month) Prophylaxis Regimen Total Risk Factor Score Risk Level Prophylaxis Regimen 0-1 Low Early ambulation 2 Moderate Order ONE of the following: *Sequential Compression Device (SCD) *Heparin 5000 units SQ BID 3-4 Higher Order ONE of the following medications: *Heparin 5000 units SQ TID *Enoxaparin/Lovenox 40 mg SQ daily (WT < 150 kg, CrCl > 30 mL/min) *Enoxaparin/Lovenox 30 mg SQ daily (WT < 150 kg, CrCl > 10-29 mL/min) *Enoxaparin/Lovenox 30 mg SQ BID (WT < 150 kg, CrCl > 30 mL/min) AND/OR *Sequential Compression Device (SCD) 5 or more Highest Order ONE of the following medications: *Heparin 5000 units SQ TID (Preferred with Epidurals) *Enoxaparin/Lovenox 40 mg SQ daily (WT < 150 kg, CrCl > 30 mL/min) *Enoxaparin/Lovenox 30 mg SQ daily (WT < 150 kg, CrCl > 10-29 mL/min) *Enoxaparin/Lovenox 30 mg SQ BID (WT < 150 kg, CrCl > 30 mL/min) AND *Sequential Compression Device (SCD) Assessment and Plan Problem List: (1) Infected ulcer of skin ICD Code: L98.499 - Non-pressure chronic ulcer of skin of other sites with unspecified severity; L08.9 - Local infection of the skin and subcutaneous tissue, unspecified Status: Acute (2) Cellulitis ICD Code: L03.90 - Cellulitis Status: Acute (3) COPD with exacerbation ICD Code: J44.1 - Chronic obstructive pulmonary disease with (acute) exacerbation (4) Tobacco dependence ICD Code: F17.200 - Tobacco dependence Status: Acute (5) Failure of outpatient treatment ICD Code: Z78.9 - Other specified health status Assessment and Plan 61-year-old man with Cellulitis right lower extremity Infected ulcer of skin Failure of outpatient therapy Tibia/fibula x-ray noted and reviewed by me with finding of anterior superior lower leg soft tissue injury Status post Zosyn and vancomycin IV 1 in ED, continue with antibiotics pending culture reports Consult wound care nurse for management Consider Doppler right lower extremity to rule out DVT Pain management accordingly COPD exacerbation Patient with a history of tobacco abuse, strongly advised against Start Solu-Medrol 20 mg IV every 8 hour, Symbicort, Spiriva, DuoNeb schedule + PRN, continue with above antibiotics Maintain oxygen saturation above 92% Tobacco cessation Tobacco cessation counseling provided Nicotine patch History of alcohol abuse Counselled against Raltan pack,CIWA protocol History of bipolar disorder, ADHD Resume outpatient medications DVT prophylaxis: Lovenox Code Status Full code Discussed Condition With Patient, ED physician Physician Certification 2 Midnight Certification Type: Admission for Inpatient Services Order for Inpatient Services The services are ordered in accordance with Medicare regulations or non- Medicare payer requirements, as applicable. In the case of services not specified as inpatient-only, they are appropriately provided as inpatient services in accordance with the 2-midnight benchmark. Estimated LOS (days): 2 days is the estimated time the patient will need to remain in the hospital, assuming treatment plan goals are met and no additional complications. Post-Hospital Plan: Not yet determined Problem Qualifiers (1) Infected ulcer of skin: Qualified Codes: L98.492 - Non-pressure chronic ulcer of skin of other sites with fat layer exposed; L08.9 - Local infection of the skin and subcutaneous tissue, unspecified (2) Cellulitis: Qualified Codes: L03.116 - Cellulitis of left lower limb Ludin Chavira MD Jun 21, 2017 14:02
[2017-06-21] MEDS: NICOTINE 21 MG/24 HR PATCH TD SCH (14:50)
[2017-06-21] MEDS: methylPREDNISolone SOD SUCC 40 MG/1 ML VIAL IV PUSH SCH ×2 (14:50→20:52)
[2017-06-21] MEDS: PIPERACIL-TAZO 3.375 GM PREMIX 50 ML IV SCH (14:57)
[2017-06-21] MEDS: RESP: ALBUTEROL 2.5 MG/IPRATROPIUM 0.5 MG NEB (SCH) NEB ×2 (15:38→20:00)
[2017-06-21 16:00] VITALS: BP 145/85; PULSE 69; RESP 18; TEMP 98.3; O2SAT 98
[2017-06-21 20:00] VITALS: BP 150/70; PULSE 72; RESP 20; TEMP 98; O2SAT 96
[2017-06-21] MEDS: traZODone HCL 100 MG TAB PO SCH (20:52)
[2017-06-21] MEDS: REMOVE OLD NICODERM (NICOTINE) PATCH T-DERMAL SCH (20:54)
[2017-06-21] MEDS: BUDESONIDE-FORMOTEROL 160/4.5 MCG INHALER INH SCH (20:55)
[2017-06-22] VITALS: BP 126/76; PULSE 74; RESP 20; TEMP 97.8; O2SAT 94
[2017-06-22] MEDS: PIPERACIL-TAZO 3.375 GM PREMIX 50 ML IV SCH ×3 (00:36→15:36)
[2017-06-22 04:00] VITALS: BP 126/71; PULSE 86; RESP 20; TEMP 97.3; O2SAT 94
[2017-06-22] MEDS: methylPREDNISolone SOD SUCC 40 MG/1 ML VIAL IV PUSH SCH ×3 (05:47→22:04)
[2017-06-22] MEDS: ACETAMINOPHEN/HYDROcodone 325 MG/5 MG TAB PO PRN ×4 (05:50→22:15)
[2017-06-22 05:55] LABS: AUTOMATED NEUTROPHIL # 5.5 TH/MM3 (1.8-7.7); BASOPHIL % 0.1 % (0.0-2.0); HEMATOCRIT 42.6 % (39.0-51.0); HEMO FLAGS DIFF FINAL; LYMPH % 9.3 % (9.0-44.0); LYMPHOCYTE # 0.6 TH/MM3 (1.0-4.8); MEAN CORPUSCULAR HEMOGLOBIN 31.4 PG (27.0-34.0); MEAN CORPUSCULAR HGB CONC 34.5 % (32.0-36.0); MONO % 3.4 % (0.0-8.0); NEUT % 87.2 % (16.0-70.0); PLATELET COUNT 273 TH/MM3 (150-450); RED BLOOD COUNT 4.68 MIL/MM3 (4.50-5.90); RED CELL DISTRIBUTION WIDTH 13.8 % (11.6-17.2); WHITE BLOOD COUNT 6.3 TH/MM3 (4.0-11.0)
[2017-06-22 06:24] LABS: ALKALINE PHOSPHATASE 62 U/L (45-117); ALT (GPT) 17 U/L (12-78); ANION GAP 7 MEQ/L (5-15); AST (GOT) 9 U/L (15-37); BICARBONATE 25.1 MEQ/L (21.0-32.0); BLOOD UREA NITROGEN 12 MG/DL (7-18); CHLORIDE 103 MEQ/L (98-107); GLOMERULAR FILTRATION RATE 106 ML/MIN (>89); POTASSIUM 4.5 MEQ/L (3.5-5.1); SODIUM (NA) 135 MEQ/L (136-145); TOTAL BILIRUBIN ADULT 0.4 MG/DL (0.2-1.0)
[2017-06-22] MEDS: RESP: ALBUTEROL 2.5 MG/IPRATROPIUM 0.5 MG NEB (SCH) NEB (08:00)
[2017-06-22] MEDS: DIVALPROEX DR 500 MG TABEC PO SCH ×2 (08:12→22:02)
[2017-06-22] MEDS: THIAMINE HCL 100 MG TAB PO SCH (08:12)
[2017-06-22] MEDS: NICOTINE 21 MG/24 HR PATCH TD SCH (08:12)
[2017-06-22] MEDS: LACTOBACILLUS ACIDOPHILUS TAB PO SCH ×2 (08:12→22:01)
--- NOTE | 2017-06-22 08:25 | HHI.PR ---
Subjective Remarks This is a pleasant 61 y/o Male with Bipolar disorder, ADHD, COPD who came with non healing left lower extremity wound for the last two weeks, initially injured himself at work when a drill spun out of his hand and hit his left left over 2 weeks ago. On 06/04/17, he presented to the ED one day after that accident for evaluation of what looked like an infected wound . He was discharged home on both doxy and Bactrim 14 days duration, which patient completed 2 days ago. However per patient's he has noticed an increase and worsening area of ulceration associated with drainage of yellow fluid. This has been also associated with swelling. 06/22: Seen in his bedroom no complaint continue antibiotics, no nausea, vomit or diarrhea, he continue smoking and has expiratory wheezing. Objective Vital Signs Date Time Temp Pulse Resp B/P (MAP) Pulse Ox O2 Delivery O2 Flow Rate FiO2 06/22/17 04:00 97.3 86 20 126/71 (89) 94 06/22/17 00:00 97.8 74 20 126/76 (93) 94 06/21/17 21:55 19 06/21/17 20:00 98.0 72 20 150/70 (96) 96 06/21/17 16:00 98.3 69 18 145/85 (105) 98 06/21/17 13:50 97.6 67 18 126/66 (86) 97 06/21/17 12:44 69 16 128/80 (96) 96 Room Air I/O 06/21/17 06/21/17 06/21/17 06/22/17 06/22/17 06/22/17 07:00 15:00 23:00 07:00 15:00 23:00 Intake Total 50 ml 312.5 ml 50 ml Balance 50 ml 312.5 ml 50 ml Intake IV Total 50 ml 312.5 ml 50 ml # Voids 1 2 Result Diagram: 06/22/1751406/22/17514 Imaging Last Impressions Tibia/Fibula X-Ray 06/21/17629 Signed Impressions: Service Date/Time: Wednesday, June 21, 2017 06:34 - CONCLUSION: Anterior superior lower leg soft tissue injury. No bony abnormality is seen. Maxi Contreras MD Procedures None Other Results Laboratory Tests Test 06/21/17 06:50 06/22/17 05:15 Prothrombin Time 10.3 SEC Prothromb Time International Ratio 0.9 RATIO Activated Partial Thromboplast Time 25.9 SEC C-Reactive Protein LESS THAN 0.29 MG/DL White Blood Count 6.3 TH/MM3 Red Blood Count 4.68 MIL/MM3 Hemoglobin 14.7 GM/DL Hematocrit 42.6 % Mean Corpuscular Volume 91.0 FL Mean Corpuscular Hemoglobin 31.4 PG Mean Corpuscular Hemoglobin Concent 34.5 % Red Cell Distribution Width 13.8 % Platelet Count 273 TH/MM3 Mean Platelet Volume 8.7 FL Neutrophils (%) (Auto) 87.2 % Lymphocytes (%) (Auto) 9.3 % Monocytes (%) (Auto) 3.4 % Eosinophils (%) (Auto) 0.0 % Basophils (%) (Auto) 0.1 % Neutrophils # (Auto) 5.5 TH/MM3 Lymphocytes # (Auto) 0.6 TH/MM3 Monocytes # (Auto) 0.2 TH/MM3 Eosinophils # (Auto) 0.0 TH/MM3 Basophils # (Auto) 0.0 TH/MM3 CBC Comment DIFF FINAL Differential Comment Blood Urea Nitrogen 12 MG/DL Creatinine 0.75 MG/DL Random Glucose 130 MG/DL Total Protein 7.2 GM/DL Albumin 2.8 GM/DL Calcium Level 8.6 MG/DL Alkaline Phosphatase 62 U/L Aspartate Amino Transf (AST/SGOT) 9 U/L Alanine Aminotransferase (ALT/SGPT) 17 U/L Total Bilirubin 0.4 MG/DL Sodium Level 135 MEQ/L Potassium Level 4.5 MEQ/L Chloride Level 103 MEQ/L Carbon Dioxide Level 25.1 MEQ/L Anion Gap 7 MEQ/L Estimat Glomerular Filtration Rate 106 ML/MIN Objective Remarks GENERAL: No acute distress. SKIN: No rashes, ecchymoses or lesions. Cool and dry.LLE with 2-1/2-3 cm area of ulceration with yellow drainage noted and surrounding erythema, edema along the anterior whyte HEAD: Atraumatic. Normocephalic. EYES: Pupils equal round and reactive. ENT: Nose without bleeding. NECK: Trachea midline. No JVD or lymphadenopathy. Supple. CARDIOVASCULAR: Regular rate and rhythm without murmurs, gallops, or rubs. RESPIRATORY: Clear to auscultation. Breath sounds decrease bilaterally. + Expiratory wheezes GASTROINTESTINAL: Abdomen soft, non-tender, nondistended. No hepato-splenomegaly , or palpable masses. No guarding. MUSCULOSKELETAL: Extremities without clubbing, cyanosis, or edema. left foreleg dressed. NEUROLOGICAL: Awake and alert. No focal deficits. Medications and IVs Current Medications Medications (Trade) Dose Ordered Sig/Ministerio Route Start Time Stop Time Status Last Admin (Depakote Dr) 500 mg BID PO 06/21/17 09:00 06/22/17 08:12 (Desyrel) 150 mg HS PO 06/21/17 21:00 06/21/17 20:52 (NS Flush) 2 ml UNSCH PRN IV FLUSH 06/21/17 08:00 (NS Flush) 2 ml BID IV FLUSH 06/21/17 09:00 06/21/17 20:54 (Tylenol) 650 mg Q4H PRN PO 06/21/17 08:00 (Zofran Inj) 4 mg Q6H PRN IVP 06/21/17 08:00 (Lovenox Inj) 40 mg Q24H SQ 06/21/17 10:00 06/21/17 09:09 (Tylenol) 650 mg Q6H PRN PO 06/21/17 08:00 ([place] 5-325 Mg) 1 tab Q4H PRN PO 06/21/17 08:00 06/22/17 05:50 (Narcan Inj) 0.4 mg UNSCH PRN IV PUSH 06/21/17 08:00 (Milk Of Magnesia Liq) 30 ml Q12H PRN PO 06/21/17 08:00 Pharmacy Profile Note 0 ml @ 0 mls/hr UNSCH OTHER 06/21/17 08:00 Piperacillin Sod/ Tazobactam Sod 50 ml @ 100 mls/hr Q8H IV 06/21/17 16:00 06/22/17 08:13 (Lactinex) 1 tab Q12HR PO 06/21/17 09:00 06/22/17 08:12 (Vasotec Inj) 2.5 mg Q6H PRN IV PUSH 06/21/17 08:00 Vancomycin HCl 1250 mg/Sodium Chloride 262.5 ml @ 250 mls/hr Q12H IV 06/21/17 10:00 06/21/17 20:56 Miscellaneous Information SPECIFIC LAB TO BE DRAWN:VANCOMYCIN TROUGH DATE TO... ONCE ONCE .XX 06/23/17 09:45 06/23/17 09:46 (Symbicort 160-4.5 Inh) 2 puff Q12HR INH 06/21/17 21:00 (Habitrol 21 Mg Patch.24 Hr) 1 patch DAILY TD 06/21/17 14:00 06/22/17 08:12 (SoluMEDROL INJ) 20 mg Q8HR IV PUSH 06/21/17 14:00 06/23/17 15:00 06/22/17 05:47 (Duoneb Neb) 1 ampule Q6HR WHILE AWAKE NEB NEB 06/21/17 14:00 06/21/17 15:38 (Duoneb Neb) 1 ampule Q2HR NEB PRN NEB 06/21/17 14:00 (Spiriva Inh) 18 mcg DAILY INH 06/22/17 09:00 (Romazicon Inj) 0.2 mg Q1M PRN IV PUSH 06/21/17 14:00 (Ativan) 1 mg Q4H PRN PO 06/21/17 14:00 (Ativan Inj) 1 mg Q4H PRN IV PUSH 06/21/17 14:00 (Ativan) 2 mg Q2H PRN PO 06/21/17 14:00 (Ativan Inj) 2 mg Q2H PRN IV PUSH 06/21/17 14:00 (Ativan Inj) 2 mg Q1H PRN IV PUSH 06/21/17 14:00 (Ativan Inj) 2 mg Q15M PRN IV PUSH 06/21/17 14:00 (Vitamin B1) 100 mg DAILY PO 06/22/17 09:00 06/22/17 08:12 (Catapres) 0.1 mg Q6H PRN PO 06/21/17 14:00 Miscellaneous Information 1 HS T-DERMAL 06/21/17 21:00 06/21/17 20:54 A/P Assessment and Plan 61-year-old man with Cellulitis right lower extremity Infected ulcer of skin Failure of outpatient therapy Tibia/fibula x-ray noted and reviewed by me with finding of anterior superior lower leg soft tissue injury Status post Zosyn and vancomycin IV 1 in ED, continue with antibiotics pending culture reports Consult wound care nurse for management Venous Ultrasound negative for DVT. COPD exacerbation Patient with a history of tobacco abuse, strongly advised against Start Solu-Medrol 20 mg IV every 8 hour, Symbicort, Spiriva, DuoNeb schedule + PRN, continue with above antibiotics Maintain oxygen saturation above 92% Tobacco cessation Tobacco cessation counseling provided Nicotine patch History of alcohol abuse Counselled against Rally pack,CIWA protocol History of bipolar disorder, ADHD Resume outpatient medications DVT prophylaxis: Lovenox Code Status Full code Discussed Condition With Discharge Planning Expected on one to two days. Jaxon Martin MD Jun 22, 2017 08:25
[2017-06-22] MEDS: SODIUM CHLORIDE 0.9% FLUSH 10 ML FLUSH IV FLUSH SCH ×2 (09:00→22:17)
--- NOTE | 2017-06-22 10:48 | RADRPT ---
EXAM DATE/TIME: 06/22/2017 09:47 [facility] COMPARISON: No previous studies available for comparison. INDICATIONS : Left leg cellulitis and pain. MEDICAL HISTORY : Hypothyroidism. COPD. Asthma. Sleep apnea. ADHD. ADD. Bipolar disorder. Depression. Anxiety. SURGICAL HISTORY : Oral surgery, fracture palate. Right hand digital nerve surgery. Right hip. Right shoulder pin. Bilat eral TMJ surgery. ENCOUNTER: Initial ACUITY: 1 week PAIN SCORE: 6/10 LOCATION: Left leg. TECHNIQUE: Venous ultrasound of the leg was performed from the inguinal ligament to the proximal calf. Real-marek e, color Doppler and spectral tracing, compression and augmentation techniques were used. FINDINGS: There is normal compressibility of the deep venous system from the inguinal region to the proximal ca lf. No echogenic clot is seen in the lumen of the common femoral, femoral, popliteal, and posterior tibial veins. There is a normal response of the venous system to proximal and distal augmentation an d respiration. Lymph node 2.9 cm left inguinal region CONCLUSION: Negative for deep venous thrombosis. Hai Hill MD FACR on June 22, 2017 at 10:45 Board Certified Radiologist. This report was verified electronically.
[2017-06-22] MEDS: VANCOMYCIN INJ 1,250 MG in SODIUM CHLOR 0.9% 250 ML INJ 250 ML IV SCH ×2 (10:54→22:04)
[2017-06-22 11:39] VITALS: BP 128/71; PULSE 69; RESP 18; TEMP 97.8; O2SAT 95
[2017-06-22] MEDS: ENOXAPARIN SODIUM 40 MG/0.4 ML SYRINGE SQ SCH (11:52)
[2017-06-22] MEDS: TIOTROPIUM BROMIDE 18 MCG INH INH SCH (11:56)
[2017-06-22 12:10] VITALS: BP 120/71; PULSE 84; RESP 18; TEMP 97.5; O2SAT 96
[2017-06-22] MEDS: BUDESONIDE-FORMOTEROL 160/4.5 MCG INHALER INH SCH ×2 (17:30→22:16)
--- NOTE | 2017-06-22 17:42 | PD.WCN.NOT ---
Wound Consult Description: Consult for RLE non healing wound per Dr Chavira Communicated with: Dr Milton Malhotra,RN Recommendation: Cleanse lower anterior left leg every other day and apply Maxorb II to wound bed , spray periwound with Cavilon skin prep and allow to dry. Cover with Optifoam gentle border. Additional Information: Patient seen on [address] for left lower anterior leg wound measuring 2cm x 1.2cm x 0.4cm. Wound presents with ~80% moist yellow tissue and ~20% red non granulating tissue. Wound has a punched out appearance with tight, shiny, blanching erythema noted to the periwound. Wound was cleansed with NS and gauze with minimal yellow exudate noted to gauze after cleansing. Wound has no active drainage and no odor. Wound cultures are negative on the preliminary results therefore Calcium Alginate (Maxorb II) was used in the wound bed and covered with an absorbant foam bordered dressing that may remain in place for 2 days unless soiled or dislodged. Justine Kearney [facility] Jun 22, 2017 17:42
[2017-06-22 20:30] VITALS: BP 134/74; PULSE 77; RESP 18; TEMP 98; O2SAT 93
[2017-06-22] MEDS: traZODone HCL 100 MG TAB PO SCH (22:03)
[2017-06-22] MEDS: REMOVE OLD NICODERM (NICOTINE) PATCH T-DERMAL SCH (22:04)
[2017-06-22] MEDS: guaiFENesin E.R. 600 MG TAB PO SCH (22:05)
[2017-06-23] MEDS: PIPERACIL-TAZO 3.375 GM PREMIX 50 ML IV SCH ×2 (00:28→08:17)
[2017-06-23 00:30] VITALS: BP 134/83; PULSE 71; RESP 18; TEMP 98; O2SAT 94
[2017-06-23 05:00] VITALS: BP 130/64; PULSE 63; RESP 18; TEMP 97.4; O2SAT 94
[2017-06-23] MEDS: ACETAMINOPHEN/HYDROcodone 325 MG/5 MG TAB PO PRN ×2 (06:20→10:46)
[2017-06-23] MEDS: methylPREDNISolone SOD SUCC 40 MG/1 ML VIAL IV PUSH SCH (06:20)
[2017-06-23 08:00] VITALS: BP 150/90; PULSE 80; RESP 20; TEMP 97.3; O2SAT 95
--- NOTE | 2017-06-23 08:16 | HHI.PR ---
Subjective Remarks This is a pleasant 61 y/o Male with Bipolar disorder, ADHD, COPD who came with non healing left lower extremity wound for the last two weeks, initially injured himself at work when a drill spun out of his hand and hit his left left over 2 weeks ago. On 06/04/17, he presented to the ED one day after that accident for evaluation of what looked like an infected wound . He was discharged home on both doxy and Bactrim 14 days duration, which patient completed 2 days ago. However per patient's he has noticed an increase and worsening area of ulceration associated with drainage of yellow fluid. This has been also associated with swelling. 06/22: Seen in his bedroom no complaint continue antibiotics, he continue smoking and has expiratory wheezing. 06/23: Seen in his bedroom, discussed with salesforce specialist, he is improving his wound and wound culture negative in the last 48 hours, the patient states he won't stop smoking and he had yesterday some expiratory wheezing, was started on Mucolytic, incentive spirometry, and Bronchodilator, also steroids. at this time walking in the room, will continue bronchodilator and Mucolytic as outpatient, he is stable for discharge discussed with Soap Drier Operator will give the patient Wound care as a kym for two opportunities also will need to follow with our outpatient clinic Objective Vital Signs Date Time Temp Pulse Resp B/P (MAP) Pulse Ox O2 Delivery O2 Flow Rate FiO2 06/23/17 05:00 97.4 63 18 130/64 (86) 94 06/23/17 00:30 98.0 71 18 134/83 (100) 94 06/22/17 20:30 98.0 77 18 134/74 (94) 93 06/22/17 12:10 97.5 84 18 120/71 (87) 96 06/22/17 11:39 97.8 69 18 128/71 (90) 95 I/O 06/22/17 06/22/17 06/22/17 06/23/17 06/23/17 06/23/17 07:00 15:00 23:00 07:00 15:00 23:00 Intake Total 50 ml 240 ml 240 ml Balance 50 ml 240 ml 240 ml Intake Oral 240 ml 240 ml IV Total 50 ml # Voids 2 2 2 Result Diagram: 06/22/1751406/22/17514 Imaging Last Impressions Lower Extremity Ultrasound 06/22/17 0000 Signed Impressions: Service Date/Time: Thursday, June 22, 2017 09:47 - CONCLUSION: Negative for deep venous thrombosis. Hai Hill MD FACR Tibia/Fibula X-Ray 06/21/17 0630 Signed Impressions: Service Date/Time: Wednesday, June 21, 2017 06:34 - CONCLUSION: Anterior superior lower leg soft tissue injury. No bony abnormality is seen. Maxi Contreras MD Procedures None Other Results Laboratory Tests Test 06/21/17 06:50 06/22/17 05:15 Prothrombin Time 10.3 SEC Prothromb Time International Ratio 0.9 RATIO Activated Partial Thromboplast Time 25.9 SEC C-Reactive Protein LESS THAN 0.29 MG/DL White Blood Count 6.3 TH/MM3 Red Blood Count 4.68 MIL/MM3 Hemoglobin 14.7 GM/DL Hematocrit 42.6 % Mean Corpuscular Volume 91.0 FL Mean Corpuscular Hemoglobin 31.4 PG Mean Corpuscular Hemoglobin Concent 34.5 % Red Cell Distribution Width 13.8 % Platelet Count 273 TH/MM3 Mean Platelet Volume 8.7 FL Neutrophils (%) (Auto) 87.2 % Lymphocytes (%) (Auto) 9.3 % Monocytes (%) (Auto) 3.4 % Eosinophils (%) (Auto) 0.0 % Basophils (%) (Auto) 0.1 % Neutrophils # (Auto) 5.5 TH/MM3 Lymphocytes # (Auto) 0.6 TH/MM3 Monocytes # (Auto) 0.2 TH/MM3 Eosinophils # (Auto) 0.0 TH/MM3 Basophils # (Auto) 0.0 TH/MM3 CBC Comment DIFF FINAL Differential Comment Blood Urea Nitrogen 12 MG/DL Creatinine 0.75 MG/DL Random Glucose 130 MG/DL Total Protein 7.2 GM/DL Albumin 2.8 GM/DL Calcium Level 8.6 MG/DL Alkaline Phosphatase 62 U/L Aspartate Amino Transf (AST/SGOT) 9 U/L Alanine Aminotransferase (ALT/SGPT) 17 U/L Total Bilirubin 0.4 MG/DL Sodium Level 135 MEQ/L Potassium Level 4.5 MEQ/L Chloride Level 103 MEQ/L Carbon Dioxide Level 25.1 MEQ/L Anion Gap 7 MEQ/L Estimat Glomerular Filtration Rate 106 ML/MIN Objective Remarks GENERAL: No acute distress. SKIN: Left Lower extremity dressed small area. HEAD: Atraumatic. Normocephalic. EYES: Pupils equal round and reactive. ENT: Nose without bleeding. NECK: Trachea midline. No JVD or lymphadenopathy. Supple. CARDIOVASCULAR: Regular rate and rhythm without murmurs, gallops, or rubs. RESPIRATORY: Decreased breath sounds and mild expiratory wheezing. GASTROINTESTINAL: Abdomen soft, non-tender, nondistended. No hepato-splenomegaly , or palpable masses. No guarding. MUSCULOSKELETAL: Extremities without clubbing, cyanosis, or edema. left foreleg dressed. NEUROLOGICAL: Awake and alert. No focal deficits. Medications and IVs Current Medications Medications (Trade) Dose Ordered Sig/Ministerio Route Start Time Stop Time Status Last Admin (Depakote Dr) 500 mg BID PO 06/21/17 09:00 06/22/17 22:02 (Desyrel) 150 mg HS PO 06/21/17 21:00 06/22/17 22:03 (NS Flush) 2 ml UNSCH PRN IV FLUSH 06/21/17 08:00 (NS Flush) 2 ml BID IV FLUSH 06/21/17 09:00 06/22/17 22:17 (Tylenol) 650 mg Q4H PRN PO 06/21/17 08:00 (Zofran Inj) 4 mg Q6H PRN IVP 06/21/17 08:00 (Lovenox Inj) 40 mg Q24H SQ 06/21/17 10:00 06/22/17 11:52 (Tylenol) 650 mg Q6H PRN PO 06/21/17 08:00 ([place] 5-325 Mg) 1 tab Q4H PRN PO 06/21/17 08:00 06/23/17 06:20 (Narcan Inj) 0.4 mg UNSCH PRN IV PUSH 06/21/17 08:00 (Milk Of Magnesia Liq) 30 ml Q12H PRN PO 06/21/17 08:00 Pharmacy Profile Note 0 ml @ 0 mls/hr UNSCH OTHER 06/21/17 08:00 Piperacillin Sod/ Tazobactam Sod 50 ml @ 100 mls/hr Q8H IV 06/21/17 16:00 06/23/17 00:28 (Lactinex) 1 tab Q12HR PO 06/21/17 09:00 06/22/17 22:01 (Vasotec Inj) 2.5 mg Q6H PRN IV PUSH 06/21/17 08:00 Vancomycin HCl 1250 mg/Sodium Chloride 262.5 ml @ 250 mls/hr Q12H IV 06/21/17 10:00 06/22/17 22:04 Miscellaneous Information SPECIFIC LAB TO BE DRAWN:VANCOMYCIN TROUGH DATE TO... ONCE ONCE .XX 06/23/17 09:45 06/23/17 09:46 (Symbicort 160-4.5 Inh) 2 puff Q12HR INH 06/21/17 21:00 06/22/17 22:16 (Habitrol 21 Mg Patch.24 Hr) 1 patch DAILY TD 06/21/17 14:00 06/22/17 08:12 (SoluMEDROL INJ) 20 mg Q8HR IV PUSH 06/21/17 14:00 06/23/17 15:00 06/23/17 06:20 (Spiriva Inh) 18 mcg DAILY INH 06/22/17 09:00 06/22/17 11:56 (Romazicon Inj) 0.2 mg Q1M PRN IV PUSH 06/21/17 14:00 (Ativan) 1 mg Q4H PRN PO 06/21/17 14:00 (Ativan Inj) 1 mg Q4H PRN IV PUSH 06/21/17 14:00 (Ativan) 2 mg Q2H PRN PO 06/21/17 14:00 (Ativan Inj) 2 mg Q2H PRN IV PUSH 06/21/17 14:00 (Ativan Inj) 2 mg Q1H PRN IV PUSH 06/21/17 14:00 (Ativan Inj) 2 mg Q15M PRN IV PUSH 06/21/17 14:00 (Vitamin B1) 100 mg DAILY PO 06/22/17 09:00 06/22/17 08:12 (Catapres) 0.1 mg Q6H PRN PO 06/21/17 14:00 Miscellaneous Information 1 HS T-DERMAL 06/21/17 21:00 06/22/17 22:04 (Duoneb Neb) 1 ampule Q6HR WHILE AWAKE NEB NEB 06/22/17 20:00 (Mucinex Er) 600 mg BID PO 06/22/17 21:00 06/22/17 22:05 A/P Assessment and Plan 61-year-old man with Cellulitis right lower extremity Infected ulcer of skin Failure of outpatient therapy Tibia/fibula x-ray noted and reviewed by me with finding of anterior superior lower leg soft tissue injury Status post Zosyn and vancomycin IV 1 in ED, this morning his wound culture negative in 48 hours will go home on [facility] and theatre manager will try to give some Kym visits for wound care. venous US negative for DVT. go home on Keflex for seven days. COPD exacerbation Patient with a history of tobacco abuse, strongly advised against Start Solu-Medrol 20 mg IV every 8 hour, Symbicort, Spiriva, DuoNeb schedule + PRN, continue with above antibiotics stable walking wants to go home, mild expiratory wheezing, he states Won't Stop smoking. will go on Symbicort and Mucinex. Tobacco cessation Tobacco cessation counseling provided Nicotine patch, states won't stop smoking. History of alcohol abuse Counselled against Raltan dotson,SHERI protocol History of bipolar disorder, ADHD Resume outpatient medications DVT prophylaxis: Lovenox Code Status Full code Discussed Condition With Patient and Soap Drier Operator for discharge and give kym visits for wound care. Discharge Planning Discharge Home today. Jaxon Martin MD Jun 23, 2017 8:16 am
[2017-06-23] MEDS: LACTOBACILLUS ACIDOPHILUS TAB PO SCH (08:18)
[2017-06-23] MEDS: DIVALPROEX DR 500 MG TABEC PO SCH (08:18)
[2017-06-23] MEDS: THIAMINE HCL 100 MG TAB PO SCH (08:18)
[2017-06-23] MEDS: guaiFENesin E.R. 600 MG TAB PO SCH (08:18)
[2017-06-23] MEDS: NICOTINE 21 MG/24 HR PATCH TD SCH (08:18)
[2017-06-23] MEDS: BUDESONIDE-FORMOTEROL 160/4.5 MCG INHALER INH SCH (08:19)
[2017-06-23] MEDS: TIOTROPIUM BROMIDE 18 MCG INH INH SCH (08:19)
[2017-06-23] MEDS: SODIUM CHLORIDE 0.9% FLUSH 10 ML FLUSH IV FLUSH SCH (08:19)
[2017-06-23] MEDS: RESP: ALBUTEROL 2.5 MG/IPRATROPIUM 0.5 MG NEB (SCH) NEB ×2 (08:48→11:50)
[2017-06-23 08:51] VITALS: O2SAT 94
[2017-06-23] MEDS ORDERED: PHARMACY ORDERED LAB ONE (09:45)
[2017-06-23] MEDS: ENOXAPARIN SODIUM 40 MG/0.4 ML SYRINGE SQ SCH (10:00)
[2017-06-23] MEDS ORDERED: CEPH-460 PO (11:07)
[2017-06-23] MEDS ORDERED: SYMB160A INH (11:07)
[2017-06-23] MEDS ORDERED: guaiFENesin ER PO (11:19)
--- NOTE | 2017-06-23 11:27 | HHI.DS ---
Discharge Summary Admission Date Jun 21, 2017 at 07:57 Discharge Date: Jun 23, 2017 Admitting Diagnosis left leg cellulitis, nonhealing wound, failed outpatient therapy (1) Failure of outpatient treatment ICD Code: Z78.9 - Other specified health status Diagnosis: Principal (2) Infected ulcer of skin ICD Code: L98.499 - Non-pressure chronic ulcer of skin of other sites with unspecified severity; L08.9 - Local infection of the skin and subcutaneous tissue, unspecified Diagnosis: Principal Status: Acute (3) Cellulitis ICD Code: L03.90 - Cellulitis Diagnosis: Principal Status: Acute (4) COPD with exacerbation ICD Code: J44.1 - Chronic obstructive pulmonary disease with (acute) exacerbation Diagnosis: Principal (5) Tobacco dependence ICD Code: F17.200 - Tobacco dependence Diagnosis: Principal Status: Acute Procedures Wound care Brief History - From Admission 61-year-old man with a history of bipolar disorder, ADHD presented to the ED for evaluation of painful nonhealing left lower extremity wound 2 weeks duration. patient states, he initially injured himself at work when a drill spun out of his hand and hit his left left over 2 weeks ago. On 06/04/17, he presented to the ED one day after that accident for evaluation of what looked like an infected wound . He was discharged home on both doxy and Bactrim 14 days duration, which patient completed 2 days ago. However per patient's he has noticed an increase and worsening area of ulceration associated with drainage of yellow fluid. This has been also associated with swelling. Denies any febrile episodes. He denies any chest pain or shortness of breath. CBC/BMP: 06/22/17 0515 06/22/17 0515 Significant Findings Laboratory Tests Test 06/21/17 06:50 06/22/17 05:15 Monocytes (%) (Auto) 12.8 % (0.0-8.0) Neutrophils (%) (Auto) 87.2 % (16.0-70.0) Lymphocytes # (Auto) 0.6 TH/MM3 (1.0-4.8) Random Glucose 130 MG/DL (74-106) Albumin 2.8 GM/DL (3.4-5.0) Aspartate Amino Transf (AST/SGOT) 9 U/L (15-37) Sodium Level 135 MEQ/L (136-145) Imaging Last Impressions Lower Extremity Ultrasound 06/22/17 0000 Signed Impressions: Service Date/Time: Thursday, June 22, 2017 09:47 - CONCLUSION: Negative for deep venous thrombosis. Hai Hill MD FACR Tibia/Fibula X-Ray 06/21/17 0630 Signed Impressions: Service Date/Time: Wednesday, June 21, 2017 06:34 - CONCLUSION: Anterior superior lower leg soft tissue injury. No bony abnormality is seen. Maxi Contreras MD PE at Discharge GENERAL: No acute distress. SKIN: Left Lower extremity dressed small area. HEAD: Atraumatic. Normocephalic. EYES: Pupils equal round and reactive. ENT: Nose without bleeding. NECK: Trachea midline. No JVD or lymphadenopathy. Supple. CARDIOVASCULAR: Regular rate and rhythm without murmurs, gallops, or rubs. RESPIRATORY: Decreased breath sounds and mild expiratory wheezing. GASTROINTESTINAL: Abdomen soft, non-tender, nondistended. No hepato-splenomegaly , or palpable masses. No guarding. MUSCULOSKELETAL: Extremities without clubbing, cyanosis, or edema. left foreleg dressed. NEUROLOGICAL: Awake and alert. No focal deficits. Hospital Course This is a pleasant 61 y/o Male with Bipolar disorder, ADHD, COPD who came with non healing left lower extremity wound for the last two weeks, initially injured himself at work when a drill spun out of his hand and hit his left left over 2 weeks ago. On 06/04/17, he presented to the ED one day after that accident for evaluation of what looked like an infected wound . He was discharged home on both doxy and Bactrim 14 days duration, which patient completed 2 days ago. However per patient's he has noticed an increase and worsening area of ulceration associated with drainage of yellow fluid. This has been also associated with swelling. 06/22: Seen in his bedroom no complaint continue antibiotics, he continue smoking and has expiratory wheezing. 06/23: Seen in his bedroom, discussed with client services specialist, he is improving his wound and wound culture negative in the last 48 hours, the patient states he won't stop smoking and he had yesterday some expiratory wheezing, was started on Mucolytic, incentive spirometry, and Bronchodilator, also steroids. at this time walking in the room, will continue bronchodilator and Mucolytic as outpatient, he is stable for discharge discussed with Cat Hooker will give the patient Wound care as a kym for two opportunities also will need to follow with our outpatient clinic Assessment and Plan 61-year-old man with Cellulitis right lower extremity Infected ulcer of skin Failure of outpatient therapy Tibia/fibula x-ray noted and reviewed by me with finding of anterior superior lower leg soft tissue injury Status post Zosyn and vancomycin IV 1 in ED, this morning his wound culture negative in 48 hours will go home on [facility] and enforcement manager will try to give some Kym visits for wound care. venous US negative for DVT. go home on Keflex for seven days. COPD exacerbation Patient with a history of tobacco abuse, strongly advised against Start Solu-Medrol 20 mg IV every 8 hour, Symbicort, Spiriva, DuoNeb schedule + PRN, continue with above antibiotics stable walking wants to go home, mild expiratory wheezing, he states Won't Stop smoking. will go on Symbicort and Mucinex. Tobacco cessation Tobacco cessation counseling provided Nicotine patch, states won't stop smoking. History of alcohol abuse Counselled against SHERI Moraes protocol History of bipolar disorder, ADHD Resume outpatient medications DVT prophylaxis: Lovenox Code Status Full code Discussed Condition With Patient and Cat Hooker for discharge and give kym visits for wound care. Discharge Planning Discharge Home today. Pt Condition on Discharge: Good Discharge Disposition: Disch w/ Home Health Serv Discharge Time: <= 30 minutes Discharge Instructions DIET: Follow Instructions for: As Tolerated, No Restrictions Activities you can perform: Regular-No Restrictions Jaxon Martin MD Jun 23, 2017 11:27
--- NOTE | 2017-06-23 11:28 | HHI.FF ---
Face to Face Verification Diagnosis: (1) Infected ulcer of skin (2) Failure of outpatient treatment Home Health Nursing Order: Medical education Signs/symptoms of disease process Medication education-adverse effect Wound care and dressing changes Nursing assessment with vital signs I have seen patient Khurram Duval on 06/23/17. My clinical findings support the need for the requested home health care services because: Ltd mobility - disease progression I certify that my clinical findings support that this patient is homebound because: Unsafe to leave home unassisted Jaxon Martin MD Jun 23, 2017 11:27
[2017-06-23 12:00] VITALS: BP 123/72; PULSE 66; RESP 20; TEMP 97.2; O2SAT 95
[2017-06-24] MEDS ORDERED: VENTAER INH (11:33)
== END 2017-06-23 14:00 | disposition home health service (06) | DRG 603 ==
LOC: NEPE 06:03 → NEDA 07:57 → N05A 12:56
PROVIDERS: ADMIT Internal Medicine; ATTEND Internal Medicine
DX: L03.116 Cellulitis of left lower limb (principal); J44.1 Chronic obstructive pulmonary disease with (acute) exacerbation; F31.9 Bipolar disorder, unspecified; F17.210 Nicotine dependence, cigarettes, uncomplicated; F90.9 Attention-deficit hyperactivity disorder, unspecified type; F10.10 Alcohol abuse, uncomplicated
CPT/HCPCS: 73590; 76937; 80053; 85025; 85610; 85730; 86140; 87070; 87205; 93971; 94150; 94640; 94664; J1650; J2543; J2920; J3370; J7030; J7050

== ENCOUNTER 2017-08-17 07:53 | Emergency (ER) | payer SELFPAY ==
[~2017-08-17] VITALS: Ht 167.6 cm; Wt 77.0 kg
[~2017-08-17 07:53] MED LIST changes: -BACT800T5 PO; +CEPH-460 PO; -DOXY100C PO; +VENTAER INH; +guaiFENesin ER PO
[2017-08-17 07:54] VITALS: BP 143/97; PULSE 87; RESP 20; TEMP 97.9; O2SAT 95; O2SAT 98
[2017-08-17] MEDS ORDERED: SERO100T PO (08:04)
--- NOTE | 2017-08-17 08:29 | PD ---
HPI Chief Complaint: Respiratory Symptoms Time Seen by Provider: 08:18 Travel History International Travel<30 days: No Contact w/Intl Traveler<30days: No Traveled to known affect area: No History of Present Illness HPI The patient is a 62-year-old male who presents to the emergency department for 5 day history of shortness of breath and cough. Patient is a 5 day history of shortness of breath, wheezing, and productive cough producing white to yellow sputum. He does complain of wheezing, denies any chest pain or tightness. He also complains of diarrhea without any nausea, vomiting, or abdominal pain. The patient is unsure whether he received an influenza vaccination this year. The patient does have a history of bronchitis and asthma, does smoke on a daily basis, approximately 2 packs per day. Last cigarette was 20 minutes prior to arrival. The patient doesn't have a primary physician. The patient does have a history of bipolar affective disorder for which he takes Depakote, trazodone, and Seroquel. The patient has not taken his Depakote and one month. Symptoms are moderate, no current alleviating or exacerbating factors. The patient denies any history of congestive heart failure, pulmonary was him, or DVT. PFSH Past Medical History Hx Anticoagulant Therapy: No ADD: Yes ADHD: Yes Asthma: Yes Autoimmune Disease: No Bipolar Disorder: Yes Anxiety: Yes Depression: Yes Cancer: No Cardiovascular Problems: No Chemotherapy: No COPD: Yes Cerebrovascular Accident: No Diabetes: No Diminished Hearing: No Endocrine: No Genitourinary: No Immune Disorder: No Musculoskeletal: Yes Neurologic: No Psychiatric: Yes (BIPOLAR, ADD, ADHD, ) Reproductive: No Respiratory: Yes Immunizations Current: Yes Sleep Apnea: Yes Past Surgical History Abdominal Surgery: No Body Medical Devices: STAINLESS STEEL IN RIGHT EYE SOCKET, JAW PLAT, PIN IN RIGHT HIP. Cardiac Surgery: No Ear Surgery: No Endocrine Surgery: No Eye Surgery: No Genitourinary Surgery: No Gynecologic Surgery: No Hysterectomy: No Neurologic Surgery: Yes (DIGITAL NERVE SURGERY RIGHT HAND. ) Oral Surgery: Yes (FX PALATE. ) Thoracic Surgery: No Tonsillectomy: Yes Other Surgery: Yes Social History Alcohol Use: Yes (3-4 cans of beer daily) Tobacco Use: Yes (2 packs per day) Substance Use: No (MARIJUANNA) Allergies-Medications (Allergen,Severity, Reaction): Coded Allergies: No Known Allergies (Verified Adverse Reaction, Unknown, 08/17/17) Reported Meds & Prescriptions Reported Meds & Active Scripts Active Ventolin Hfa 18 GM Inh (Albuterol Sulfate) 90 Mcg/Act Aer 1 Puff INH Q4H PRN Reported Seroquel (Quetiapine Fumarate) 100 Mg Tab 150 Mg PO HS Trazodone (Trazodone HCl) 150 Mg Tablet 150 Mg PO HS Depakote DR (Divalproex Sodium) 500 Mg Tabdr 500 Mg PO BID Review of Systems Except as stated in HPI: all other systems reviewed are Neg General / Constitutional: No: Fever HENT: Positive: Congestion Cardiovascular: No: Chest Pain or Discomfort Respiratory: Positive: Cough, Shortness of Breath, Wheezing Gastrointestinal: Positive: Diarrhea, No: Nausea, Vomiting, Abdominal Pain Musculoskeletal: No: Myalgias, Arthralgias, Edema Neurologic: No: Dizziness Physical Exam Narrative GENERAL: Awake, alert, pleasant 62-year-old male who appears his stated age and is in mild respiratory distress. SKIN: Focused skin assessment warm/dry. Multiple tattoos noted. HEAD: Atraumatic. Normocephalic. EYES: Pupils equal and round. No scleral icterus. No injection or drainage. ENT: No nasal bleeding or discharge. Breath smells of tobacco. NECK: Trachea midline. No JVD. CARDIOVASCULAR: Regular rate and rhythm. No murmur appreciated. Heart rate in the 80s. RESPIRATORY: No accessory muscle use. Prolonged expiratory phase with diffuse wheezing. GASTROINTESTINAL: Abdomen soft, non-tender, nondistended. MUSCULOSKELETAL: No obvious deformities. No clubbing. No cyanosis. No edema. NEUROLOGICAL: Awake and alert. No obvious cranial nerve deficits. Motor grossly within normal limits. Normal speech. PSYCHIATRIC: Appropriate mood and affect; insight and judgment normal. Data Data Last Documented VS Vital Signs Date Time Temp Pulse Resp B/P (MAP) Pulse Ox O2 Delivery O2 Flow Rate FiO2 08/17/17 08:40 98 Nasal Cannula 2.00 08/17/17 08:35 08/17/17 07:54 97.9 87 20 Orders Orders Complete Blood Count With Diff (08/17/17 08:22) Comprehensive Metabolic Panel (08/17/17 08:22) B-Type Natriuretic Peptide (08/17/17 08:22) Magnesium (Mg) (08/17/17 08:22) Ckmb (Isoenzyme) Profile (08/17/17 08:22) Troponin I (08/17/17 08:22) Influenzae A/B Antigen (08/17/17 08:22) Iv Access Insert/Monitor (08/17/17 08:22) Electrocardiogram (08/17/17 08:22) Ecg Monitoring (08/17/17 08:22) Oximetry (08/17/17 08:22) Oxygen Administration (08/17/17 08:22) Chest, Single Ap (08/17/17 08:22) Sodium Chloride 0.9% Flush (Ns Flush) (08/17/17 08:30) Methylprednisolone So Succ Inj (Solumedr (08/17/17 08:30) Albuterol-Ipratropium Neb (Duoneb Neb) (08/17/17 08:30) Labs Laboratory Tests Test 08/17/17 08:30 White Blood Count 6.0 TH/MM3 Red Blood Count 5.02 MIL/MM3 Hemoglobin 15.8 GM/DL Hematocrit 45.0 % Mean Corpuscular Volume 89.6 FL Mean Corpuscular Hemoglobin 31.5 PG Mean Corpuscular Hemoglobin Concent 35.1 % Red Cell Distribution Width 13.9 % Platelet Count 194 TH/MM3 Mean Platelet Volume 8.7 FL Neutrophils (%) (Auto) 61.9 % Lymphocytes (%) (Auto) 22.3 % Monocytes (%) (Auto) 12.8 % Eosinophils (%) (Auto) 1.8 % Basophils (%) (Auto) 1.2 % Neutrophils # (Auto) 3.7 TH/MM3 Lymphocytes # (Auto) 1.3 TH/MM3 Monocytes # (Auto) 0.8 TH/MM3 Eosinophils # (Auto) 0.1 TH/MM3 Basophils # (Auto) 0.1 TH/MM3 CBC Comment DIFF FINAL Differential Comment Blood Urea Nitrogen 8 MG/DL Creatinine 0.84 MG/DL Random Glucose 88 MG/DL Total Protein 8.1 GM/DL Albumin 4.1 GM/DL Calcium Level 9.0 MG/DL Magnesium Level 2.2 MG/DL Alkaline Phosphatase 129 U/L Aspartate Amino Transf (AST/SGOT) 17 U/L Alanine Aminotransferase (ALT/SGPT) 19 U/L Total Bilirubin 0.4 MG/DL Sodium Level 136 MEQ/L Potassium Level 4.1 MEQ/L Chloride Level 103 MEQ/L Carbon Dioxide Level 26.7 MEQ/L Anion Gap 6 MEQ/L Estimat Glomerular Filtration Rate 92 ML/MIN Total Creatine Kinase 99 U/L Troponin I LESS THAN 0.02 NG/ML B-Type Natriuretic Peptide 22 PG/ML MDM Medical Decision Making Medical Screen Exam Complete: Yes Emergency Medical Condition: Yes Medical Record Reviewed: Yes Interpretation(s) EKG reveals normal sinus rhythm with a rate of 69. Supraventricular premature complexes. Date/Time Source Procedure Growth Status 08/17/17 08:30 Nasal Aspirate Influenza Types A,B Antigen ([facility]) - Final NEGATIVE FOR FLU A AND B ANTIGEN.... Complete Last Impressions Chest X-Ray 08/17/17821 Signed Impressions: Service Date/Time: Thursday, August 17, 2017 08:47 - CONCLUSION: 1. Minimal left basilar density likely atelectasis. Ludin Lynch MD Laboratory Tests Test 08/17/17 08:30 White Blood Count 6.0 TH/MM3 Red Blood Count 5.02 MIL/MM3 Hemoglobin 15.8 GM/DL Hematocrit 45.0 % Mean Corpuscular Volume 89.6 FL Mean Corpuscular Hemoglobin 31.5 PG Mean Corpuscular Hemoglobin Concent 35.1 % Red Cell Distribution Width 13.9 % Platelet Count 194 TH/MM3 Mean Platelet Volume 8.7 FL Neutrophils (%) (Auto) 61.9 % Lymphocytes (%) (Auto) 22.3 % Monocytes (%) (Auto) 12.8 % Eosinophils (%) (Auto) 1.8 % Basophils (%) (Auto) 1.2 % Neutrophils # (Auto) 3.7 TH/MM3 Lymphocytes # (Auto) 1.3 TH/MM3 Monocytes # (Auto) 0.8 TH/MM3 Eosinophils # (Auto) 0.1 TH/MM3 Basophils # (Auto) 0.1 TH/MM3 CBC Comment DIFF FINAL Differential Comment Blood Urea Nitrogen 8 MG/DL Creatinine 0.84 MG/DL Random Glucose 88 MG/DL Total Protein 8.1 GM/DL Albumin 4.1 GM/DL Calcium Level 9.0 MG/DL Magnesium Level 2.2 MG/DL Alkaline Phosphatase 129 U/L Aspartate Amino Transf (AST/SGOT) 17 U/L Alanine Aminotransferase (ALT/SGPT) 19 U/L Total Bilirubin 0.4 MG/DL Sodium Level 136 MEQ/L Potassium Level 4.1 MEQ/L Chloride Level 103 MEQ/L Carbon Dioxide Level 26.7 MEQ/L Anion Gap 6 MEQ/L Estimat Glomerular Filtration Rate 92 ML/MIN Total Creatine Kinase 99 U/L Troponin I LESS THAN 0.02 NG/ML B-Type Natriuretic Peptide 22 PG/ML Differential Diagnosis Differential diagnosis includes bronchitis, pneumonia, reactive airway disease, COPD, asthma exacerbation, pulmonary embolism, cardiomyopathy, congestive heart failure, pleural effusion. Narrative Course IV was established, labs are drawn and sent, and the patient was placed on cardiac telemetry monitoring and continuous pulse oximetry monitoring. EKG was ordered and interpreted. Chest x-ray was obtained. The patient received Solu- Medrol 125 mg intravenously and duo nebs 2. Influenza screen was negative. Chest x-rays unremarkable. BNP and troponin are unremarkable. The patient was reevaluated at 9:46 AM. The patient's symptoms have improved. I have advised the patient he needs to cut back on smoking, he is smoking 2 packs of cigarettes per day. I will write for nebulizer machine as well as nebulizers, inhaler, Zithromax, and steroids. He is advised to return if symptoms worsen or progress. Diagnosis Primary Impression: Bronchitis Additional Impression: COPD with exacerbation Patient Instructions: General Instructions Additional Instructions: Medications as directed. Follow-up with her primary physician. Stop smoking. Follow up at the [facility]. Please provide the patient a copy of his x-ray findings and lab findings at discharge. Med/Other Pt SpecificInfo: Prescription(s) given Scripts Compressor Nebulizer (Compressor Nebulizer) 1 Mis Mis EA .ROUTE DIRECTED for Breathing Treatment, #1 0 Refills Use as directed Prov: Hardeep Rios MD 08/17/17 Albuterol Neb (Albuterol Neb) 2.5 Mg/3 Ml Neb 2.5 MG NEB Q4HR NEB Y for SHORTNESS OF BREATH, #60 NEBULE 0 Refills Prov: Hardeep Rios MD 08/17/17 Azithromycin (Zithromax Z-Cruz) 250 Mg Dspk 250 MG PO DIRECTED for Infection, #1 DSPK 0 Refills 500 MG (2 tabs) day 1, then 1 tab days 2-5. Prov: Hardeep Rios MD 08/17/17 Albuterol 18 GM Inh (Ventolin Hfa 18 GM Inh) 90 Mcg/Act Aer 2 PUFF INH Q6H Y for SHORTNESS OF BREATH, #1 INHALER 0 Refills Prov: Hardeep Rios MD 08/17/17 Prednisone (Deltasone) 20 Mg Tab 40 MG PO DAILY for 5 Days, #10 TAB 0 Refills Prov: Hardeep Rios MD 08/17/17 Disposition: 01 DISCHARGE HOME Condition: Stable Hardeep Rios MD Aug 17, 2017 08:29
[2017-08-17] MEDS ORDERED: SODIUM CHLORIDE 0.9% FLUSH 10 ML FLUSH IVF PRN (08:30)
[2017-08-17] MEDS ORDERED: methylPREDNISolone SOD SUCC 125 MG/2 ML VIAL IV PUSH ONE (08:30)
[2017-08-17 08:35] VITALS: O2SAT 96
[2017-08-17] MEDS: RESP: ALBUTEROL 2.5 MG/IPRATROPIUM 0.5 MG NEB (SCH) INH (08:38)
[2017-08-17 08:40] VITALS: O2SAT 98
[2017-08-17 08:55] LABS: AUTOMATED NEUTROPHIL # 3.7 TH/MM3 (1.8-7.7); BASOPHIL # 0.1 TH/MM3 (0-0.2); BASOPHIL % 1.2 % (0.0-2.0); EOSINOPHIL # 0.1 TH/MM3 (0-0.4); EOSINOPHIL % 1.8 % (0.0-4.0); HEMOGLOBIN 15.8 GM/DL (13.0-17.0); LYMPH % 22.3 % (9.0-44.0); LYMPHOCYTE # 1.3 TH/MM3 (1.0-4.8); MEAN CELL VOLUME 89.6 FL (80.0-100.0); MEAN CORPUSCULAR HEMOGLOBIN 31.5 PG (27.0-34.0); MEAN CORPUSCULAR HGB CONC 35.1 % (32.0-36.0); MEAN PLATELET VOLUME 8.7 FL (7.0-11.0); MONO % 12.8 % (0.0-8.0); MONOCYTE # 0.8 TH/MM3 (0-0.9); NEUT % 61.9 % (16.0-70.0); PLATELET COUNT 194 TH/MM3 (150-450); RED BLOOD COUNT 5.02 MIL/MM3 (4.50-5.90); RED CELL DISTRIBUTION WIDTH 13.9 % (11.6-17.2)
--- NOTE | 2017-08-17 09:05 | RADRPT ---
EXAM DATE/TIME: 08/17/2017 08:47 [facility] COMPARISON: CHEST SINGLE AP, March 09, 2015, 7:52. INDICATIONS : Short of breath with wheezing. MEDICAL HISTORY : None. SURGICAL HISTORY : None. ENCOUNTER: Initial ACUITY: 1 day PAIN SCORE: 0/10 LOCATION: Bilateral chest FINDINGS: A single view of the chest demonstrates minimal left basilar density. Right lung clear. Heart normal in size The cardiomediastinal contours are unremarkable. Osseous structures are intact. CONCLUSION: 1. Minimal left basilar density likely atelectasis. Ludin Lynch MD on August 17, 2017 at 9:01 Board Certified Radiologist. This report was verified electronically.
[2017-08-17 09:08] LABS: ALBUMIN 4.1 GM/DL (3.4-5.0); AST (GOT) 17 U/L (15-37); BICARBONATE 26.7 MEQ/L (21.0-32.0); BLOOD UREA NITROGEN 8 MG/DL (7-18); CHLORIDE 103 MEQ/L (98-107); CREATININE 0.84 MG/DL (0.60-1.30); GLOMERULAR FILTRATION RATE 92 ML/MIN (>89); GLUCOSE,RANDOM 88 MG/DL (74-106); MAGNESIUM 2.2 MG/DL (1.5-2.5); SODIUM (NA) 136 MEQ/L (136-145)
[2017-08-17 09:09] LABS: ALT (GPT) 19 U/L (12-78)
[2017-08-17 09:13] LABS: ALKALINE PHOSPHATASE 129 U/L (45-117); TOTAL BILIRUBIN ADULT 0.4 MG/DL (0.2-1.0); TOTAL PROTEIN 8.1 GM/DL (6.4-8.2); TROPONIN I LESS THAN 0.02 NG/ML (0.02-0.05)
[2017-08-17] MEDS ORDERED: ALBU0.08 NEB (09:55)
[2017-08-17] MEDS ORDERED: ZITHTAB PO (09:55)
[2017-08-17] MEDS ORDERED: PRED-503 PO (09:55)
[2017-08-17] MEDS ORDERED: COMPRESSOR NEBU1 MIS (09:55)
[2017-08-17] MEDS ORDERED: VENTAER INH (09:55)
[2017-08-17 10:57] VITALS: BP 135/72
--- NOTE | 2017-08-17 11:55 | EKG ---
Date Performed: 08/17/2017 Time Performed: 08:27:34 PTAGE: 62 years EKG: Sinus rhythm WITH OCCASIONAL VENTRICULAR PREMATURE COMPLEXES BORDERLINE ECG PREVIOUS TRACING : 03/09/2015 09.00 Since the prior tracing, there has been no significant donohue DOCTOR: Laura Bhandari Interpretating Date/Time 08/17/2017 11:54:00
== END 2017-08-17 10:59 | disposition home or self-care (01) ==
LOC: NEPC 07:53
DX: J44.1 Chronic obstructive pulmonary disease with (acute) exacerbation (principal); R19.7 Diarrhea, unspecified; F31.9 Bipolar disorder, unspecified; F90.9 Attention-deficit hyperactivity disorder, unspecified type; F41.9 Anxiety disorder, unspecified; G47.30 Sleep apnea, unspecified; F17.210 Nicotine dependence, cigarettes, uncomplicated
CPT/HCPCS: 71045; 80053; 82550; 83735; 83880; 84484; 85025; 87804; 93005; 94640; 94664; 96374; 99285; J2930

== ENCOUNTER 2017-12-20 00:43 | Emergency (ER) | payer SELFPAY ==
[~2017-12-20 00:43] MED LIST changes: +ALBU0.08 NEB; -CEPH-460 PO; +COMPRESSOR NEBU1 MIS; +PRED-503 PO; +SERO100T PO; +ZITHTAB PO; -guaiFENesin ER PO
[2017-12-20 00:46] VITALS: BP 160/91; PULSE 65; RESP 20; TEMP 98.1; O2SAT 96
[2017-12-20] MEDS ORDERED: SODIUM CHLORIDE 0.9% FLUSH 10 ML FLUSH IVF PRN (01:00)
[2017-12-20] MEDS ORDERED: SODIUM CHLOR 0.9% 1000 ML INJ 1,000 ML IV ONE (01:00)
[2017-12-20 01:36] LABS: AUTOMATED NEUTROPHIL # 2.6 TH/MM3 (1.8-7.7); BASOPHIL # 0.1 TH/MM3 (0-0.2); BASOPHIL % 1.8 % (0.0-2.0); EOSINOPHIL # 0.1 TH/MM3 (0-0.4); EOSINOPHIL % 1.6 % (0.0-4.0); HEMATOCRIT 46.7 % (39.0-51.0); HEMOGLOBIN 15.9 GM/DL (13.0-17.0); LYMPH % 39.3 % (9.0-44.0); LYMPHOCYTE # 2.2 TH/MM3 (1.0-4.8); MEAN CELL VOLUME 92.9 FL (80.0-100.0); MEAN CORPUSCULAR HEMOGLOBIN 31.7 PG (27.0-34.0); MEAN CORPUSCULAR HGB CONC 34.1 % (32.0-36.0); MEAN PLATELET VOLUME 7.9 FL (7.0-11.0); MONO % 10.2 % (0.0-8.0); MONOCYTE # 0.6 TH/MM3 (0-0.9); NEUT % 47.1 % (16.0-70.0); PLATELET COUNT 168 TH/MM3 (150-450); RED BLOOD COUNT 5.02 MIL/MM3 (4.50-5.90); RED CELL DISTRIBUTION WIDTH 14.7 % (11.6-17.2); WHITE BLOOD COUNT 5.6 TH/MM3 (4.0-11.0)
[2017-12-20] MEDS ORDERED: RESP: BUDESONIDE 0.5 MG/2 ML NEB NEB ONE (01:45)
[2017-12-20] MEDS ORDERED: methylPREDNISolone SOD SUCC 125 MG/2 ML VIAL IV PUSH ONE (01:45)
--- NOTE | 2017-12-20 01:51 | RADRPT ---
EXAM DATE: 12/20/2017 1:47 AM EDT AGE/SEX: 62 years / Male INDICATIONS: Wheezing, cough. CLINICAL DATA: This is the patient's initial encounter. Patient reports that signs and symptoms have been present for 1 day and indicates a pain score of 2/10. MEDICAL/SURGICAL HISTORY: None. None. COMPARISON: [facility] – [place], CHEST SINGLE AP, 08/17/2017. . FINDINGS: The lungs are clear without infiltrate, nodule, or mass. There is no appreciable pleural effusion for technique. Heart and mediastinum are unremarkable. The previously seen left lung base atelectasis has resolved. CONCLUSION: No acute cardiopulmonary disease. Electronically signed by: Denise Nieto MD 12/20/2017 1:50 AM EDT
[2017-12-20 01:56] LABS: ALBUMIN 3.8 GM/DL (3.4-5.0); ALT (GPT) 36 U/L (12-78); AST (GOT) 80 U/L (15-37); BLOOD UREA NITROGEN 9 MG/DL (7-18); CALCIUM 8.7 MG/DL (8.5-10.1); CHLORIDE 104 MEQ/L (98-107); GLOMERULAR FILTRATION RATE 85 ML/MIN (>89); GLUCOSE,RANDOM 81 MG/DL (74-106); SODIUM (NA) 143 MEQ/L (136-145)
[2017-12-20 02:06] LABS: ALKALINE PHOSPHATASE 133 U/L (45-117); TOTAL BILIRUBIN ADULT 0.4 MG/DL (0.2-1.0); TOTAL PROTEIN 8.6 GM/DL (6.4-8.2)
--- NOTE | 2017-12-20 02:26 | PD ---
HPI Chief Complaint: Psychiatric Symptoms Time Seen by Provider: 00:54 Travel History International Travel<30 days: No Contact w/Intl Traveler<30days: No Traveled to known affect area: No History of Present Illness HPI Patient is a 62-year-old male presenting to the emergency department for psychiatric evaluation secondary to suicidal ideations. Patient states he has been suicidal for the last few hours. He is not forthcoming with information and did not say why he suddenly felt suicidal. He reports a previous suicide attempt last year via overdose with heroin. Patient is a daily alcohol consumer. He drinks 8 beers a day on average and he also partakes in the occasional use of crack cocaine. He denies any hallucinations or homicidal ideations. He has no physical complaints at this time. Symptom onset is unknown, symptoms are likely exacerbated due to alcohol and drug use. PFSH Past Medical History ADHD: Yes Asthma: Yes Bipolar Disorder: Yes Anxiety: Yes Depression: Yes COPD: Yes Immunizations Current: Yes Sleep Apnea: Yes Past Surgical History Abdominal Surgery: No Body Medical Devices: STAINLESS STEEL IN RIGHT EYE SOCKET, JAW PLAT, PIN IN RIGHT HIP. Cardiac Surgery: No Ear Surgery: No Endocrine Surgery: No Eye Surgery: No Genitourinary Surgery: No Gynecologic Surgery: No Hysterectomy: No Neurologic Surgery: Yes (DIGITAL NERVE SURGERY RIGHT HAND. ) Oral Surgery: Yes (FX PALATE. ) Thoracic Surgery: No Tonsillectomy: Yes Other Surgery: Yes Social History Alcohol Use: Yes (DAILY) Tobacco Use: Yes (1-2 PPD) Substance Use: No (HX HEROIN, MARIJUANNA) Allergies-Medications (Allergen,Severity, Reaction): Coded Allergies: No Known Allergies (Verified Adverse Reaction, Unknown, 08/17/17) Reported Meds & Prescriptions Reported Meds & Active Scripts Active Compressor Nebulizer 1 Mis Mis Ea .ROUTE DIRECTED Use as directed Albuterol Neb (Albuterol Sulfate) 2.5 Mg/3 Ml Neb 2.5 Mg NEB Q4HR NEB PRN Ventolin Hfa 18 GM Inh (Albuterol Sulfate) 90 Mcg/Act Aer 1 Puff INH Q4H PRN Reported Seroquel (Quetiapine Fumarate) 100 Mg Tab 150 Mg PO HS Trazodone (Trazodone HCl) 150 Mg Tablet 150 Mg PO HS Depakote DR (Divalproex Sodium) 500 Mg Tabdr 500 Mg PO BID Review of Systems Except as stated in HPI: all other systems reviewed are Neg Psychiatric: Positive: Depression, Suicidal Ideations, Substance Abuse Physical Exam Narrative GENERAL: Well-developed, well-nourished, alert male. Appears intoxicated, in no acute distress. SKIN: Warm and dry. HEAD: Atraumatic. Normocephalic. EYES: Pupils equal and round. No scleral icterus. No injection or drainage. ENT: No nasal bleeding or discharge. Mucous membranes pink and moist. NECK: Trachea midline. No JVD. CARDIOVASCULAR: Regular rate and rhythm. RESPIRATORY: No accessory muscle use. Scattered expiratory wheezes GASTROINTESTINAL: Abdomen soft, non-tender, nondistended. Hepatic and splenic margins not palpable. MUSCULOSKELETAL: Extremities without clubbing, cyanosis, or edema. No obvious deformities. NEUROLOGICAL: Awake and alert. No obvious cranial nerve deficits. Motor grossly within normal limits. Five out of 5 muscle strength in the arms and legs. Normal speech. PSYCHIATRIC: Appropriate mood and affect; insight and judgment impaired secondary to intoxication. Data Data Last Documented VS Vital Signs Date Time Temp Pulse Resp B/P (MAP) Pulse Ox O2 Delivery O2 Flow Rate FiO2 12/20/17 00:46 98.1 65 20 160/91 (114) 96 Orders Orders Complete Blood Count With Diff (12/20/17 00:55) Comprehensive Metabolic Panel (12/20/17 00:55) Thyroid Stimulating Hormone (12/20/17 00:55) Iv Access Insert/Monitor (12/20/17 00:55) Psych Screen (12/20/17 00:55) Sodium Chloride 0.9% Flush (Ns Flush) (12/20/17 01:00) Drug Screen, Random Urine (12/20/17 00:55) Alcohol (Ethanol) (12/20/17 00:55) Sodium Chlor 0.9% 1000 Ml Inj (Ns 1000 M (12/20/17 01:00) Valproic Acid (Depakene) (12/20/17 01:12) Oximetry (12/20/17 01:38) Chest, Single Ap (12/20/17 01:38) Methylprednisolone So Succ Inj (Solumedr (12/20/17 01:45) Albuterol-Ipratropium Neb (Duoneb Neb) (12/20/17 01:45) Budesonide Neb (Pulmicort Respule Neb) (12/20/17 01:45) Labs Laboratory Tests Test 12/20/17 01:20 12/20/17 01:22 White Blood Count 5.6 TH/MM3 Red Blood Count 5.02 MIL/MM3 Hemoglobin 15.9 GM/DL Hematocrit 46.7 % Mean Corpuscular Volume 92.9 FL Mean Corpuscular Hemoglobin 31.7 PG Mean Corpuscular Hemoglobin Concent 34.1 % Red Cell Distribution Width 14.7 % Platelet Count 168 TH/MM3 Mean Platelet Volume 7.9 FL Neutrophils (%) (Auto) 47.1 % Lymphocytes (%) (Auto) 39.3 % Monocytes (%) (Auto) 10.2 % Eosinophils (%) (Auto) 1.6 % Basophils (%) (Auto) 1.8 % Neutrophils # (Auto) 2.6 TH/MM3 Lymphocytes # (Auto) 2.2 TH/MM3 Monocytes # (Auto) 0.6 TH/MM3 Eosinophils # (Auto) 0.1 TH/MM3 Basophils # (Auto) 0.1 TH/MM3 CBC Comment DIFF FINAL Differential Comment Blood Urea Nitrogen 9 MG/DL Creatinine 0.90 MG/DL Random Glucose 81 MG/DL Total Protein 8.6 GM/DL Albumin 3.8 GM/DL Calcium Level 8.7 MG/DL Alkaline Phosphatase 133 U/L Aspartate Amino Transf (AST/SGOT) 80 U/L Alanine Aminotransferase (ALT/SGPT) 36 U/L Total Bilirubin 0.4 MG/DL Sodium Level 143 MEQ/L Potassium Level 4.4 MEQ/L Chloride Level 104 MEQ/L Carbon Dioxide Level 31.0 MEQ/L Anion Gap 8 MEQ/L Estimat Glomerular Filtration Rate 85 ML/MIN Thyroid Stimulating Hormone 3rd Gen 12.700 uIU/ML Ethyl Alcohol Level 299 MG/DL Urine Opiates Screen NEG Urine Barbiturates Screen NEG Urine Amphetamines Screen NEG Urine Benzodiazepines Screen NEG Urine Cocaine Screen NEG Urine Cannabinoids Screen NEG MDM Medical Decision Making Medical Screen Exam Complete: Yes Emergency Medical Condition: Yes Interpretation(s) Last Impressions Chest X-Ray 12/20/17 8768 Signed Impressions: CONCLUSION: No acute cardiopulmonary disease. Laboratory Tests Test 12/20/17 01:20 12/20/17 01:22 White Blood Count 5.6 TH/MM3 Red Blood Count 5.02 MIL/MM3 Hemoglobin 15.9 GM/DL Hematocrit 46.7 % Mean Corpuscular Volume 92.9 FL Mean Corpuscular Hemoglobin 31.7 PG Mean Corpuscular Hemoglobin Concent 34.1 % Red Cell Distribution Width 14.7 % Platelet Count 168 TH/MM3 Mean Platelet Volume 7.9 FL Neutrophils (%) (Auto) 47.1 % Lymphocytes (%) (Auto) 39.3 % Monocytes (%) (Auto) 10.2 % Eosinophils (%) (Auto) 1.6 % Basophils (%) (Auto) 1.8 % Neutrophils # (Auto) 2.6 TH/MM3 Lymphocytes # (Auto) 2.2 TH/MM3 Monocytes # (Auto) 0.6 TH/MM3 Eosinophils # (Auto) 0.1 TH/MM3 Basophils # (Auto) 0.1 TH/MM3 CBC Comment DIFF FINAL Differential Comment Blood Urea Nitrogen 9 MG/DL Creatinine 0.90 MG/DL Random Glucose 81 MG/DL Total Protein 8.6 GM/DL Albumin 3.8 GM/DL Calcium Level 8.7 MG/DL Alkaline Phosphatase 133 U/L Aspartate Amino Transf (AST/SGOT) 80 U/L Alanine Aminotransferase (ALT/SGPT) 36 U/L Total Bilirubin 0.4 MG/DL Sodium Level 143 MEQ/L Potassium Level 4.4 MEQ/L Chloride Level 104 MEQ/L Carbon Dioxide Level 31.0 MEQ/L Anion Gap 8 MEQ/L Estimat Glomerular Filtration Rate 85 ML/MIN Thyroid Stimulating Hormone 3rd Gen 12.700 uIU/ML Ethyl Alcohol Level 299 MG/DL Urine Opiates Screen NEG Urine Barbiturates Screen NEG Urine Amphetamines Screen NEG Urine Benzodiazepines Screen NEG Urine Cocaine Screen NEG Urine Cannabinoids Screen NEG Vital Signs Date Time Temp Pulse Resp B/P (MAP) Pulse Ox O2 Delivery O2 Flow Rate FiO2 12/20/17 00:46 98.1 65 20 160/91 (114 96 Differential Diagnosis Substance induced mood disorder versus depression versus suicidal ideations were COPD exacerbation versus malingering versus other Narrative Course Patient is a 62-year-old male presenting to emergency department voluntarily for psychiatric evaluation. On exam patient was noted to have scattered expiratory wheezes. Chest x-ray, duo nebs and Solu-Medrol was ordered. Mental health screening discussed with the patient. Psychiatric screen ordered. Labs reviewed, no acute findings identified. Chest x-ray which is read by the radiologist shows no acute disease. Urine drug screen is negative, alcohol level is 299. TSH is 12.7, will add on a free T4 and T3 at this time. Patient was given a liter of IV fluids. Patient is medically clear for psychiatric evaluation at this time. Diagnosis Primary Impression: Alcohol intoxication Qualified Codes: F10.920 - Alcohol use, unspecified with intoxication, uncomplicated Additional Impressions: Encounter for medical clearance for patient hold Abnormal results of thyroid function studies Condition: Stable [place] December 20, 2017 02:26
[2017-12-20] MEDS: RESP: ALBUTEROL 2.5 MG/IPRATROPIUM 0.5 MG NEB (SCH) INH ×2 (02:44→02:45)
[2017-12-20 02:45] VITALS: O2SAT 96
[2017-12-20 03:03] LABS: FREE T3 2.92 PG/ML (2.18-3.98); FREE T4 0.68 NG/DL (0.76-1.46)
[2017-12-20] MEDS ORDERED: FLUMAZENIL 0.5 MG/5 ML VIAL IV PUSH PRN (03:15)
[2017-12-20] MEDS ORDERED: LORazepam 2 MG/ML VIAL IV PUSH PRN ×4 (03:15)
[2017-12-20] MEDS ORDERED: LORazepam 1 MG TAB PO PRN (03:15)
[2017-12-20] MEDS ORDERED: ACETAMINOPHEN 325 MG TAB PO PRN (03:15)
[2017-12-20] MEDS ORDERED: IBUPROFEN 600 MG TAB PO PRN (03:15)
[2017-12-20] MEDS ORDERED: LORazepam 2 MG TAB PO PRN (03:15)
[2017-12-20] MEDS ORDERED: ONDANSETRON ODT 4 MG TAB PO PRN (03:15)
[2017-12-20] MEDS ORDERED: RESP: ALBUTEROL 2.5 MG/3 ML NEB (PRN) NEB (03:15)
[2017-12-20 06:01] VITALS: BP 128/74; PULSE 73; RESP 18; O2SAT 94
--- NOTE | 2017-12-20 07:30 | PD ---
Data Data Last Documented VS Vital Signs Date Time Temp Pulse Resp B/P (MAP) Pulse Ox O2 Delivery O2 Flow Rate FiO2 12/20/17 06:01 73 18 128/74 (92) 94 Room Air 12/20/17 02:45 21 12/20/17 00:46 98.1 Orders Orders Complete Blood Count With Diff (12/20/17 00:55) Comprehensive Metabolic Panel (12/20/17 00:55) Thyroid Stimulating Hormone (12/20/17 00:55) Iv Access Insert/Monitor (12/20/17 00:55) Psych Screen (12/20/17 00:55) Sodium Chloride 0.9% Flush (Ns Flush) (12/20/17 01:00) Drug Screen, Random Urine (12/20/17 00:55) Alcohol (Ethanol) (12/20/17 00:55) Sodium Chlor 0.9% 1000 Ml Inj (Ns 1000 M (12/20/17 01:00) Valproic Acid (Depakene) (12/20/17 01:12) Oximetry (12/20/17 01:38) Chest, Single Ap (12/20/17 01:38) Methylprednisolone So Succ Inj (Solumedr (12/20/17 01:45) Albuterol-Ipratropium Neb (Duoneb Neb) (12/20/17 01:45) Budesonide Neb (Pulmicort Respule Neb) (12/20/17 01:45) Free T3 (12/20/17 02:24) Free Thyroxine (T4) (12/20/17 02:24) Diet Regular Basic (12/20/17 Breakfast) Alcohol Withdrawal Asmt-Ciwa ONCE (12/20/17 03:06) Ondansetron Odt (Zofran Odt) (12/20/17 03:15) Acetaminophen (Tylenol) (12/20/17 03:15) Ibuprofen (Motrin) (12/20/17 03:15) Albuterol Neb (Albuterol Neb) (12/20/17 03:15) Flumazenil Inj (Romazicon Inj) (12/20/17 03:15) Lorazepam (Ativan) (12/20/17 03:15) Lorazepam Inj (Ativan Inj) (12/20/17 03:15) Lorazepam (Ativan) (12/20/17 03:15) Lorazepam Inj (Ativan Inj) (12/20/17 03:15) Lorazepam Inj (Ativan Inj) (12/20/17 03:15) Lorazepam Inj (Ativan Inj) (12/20/17 03:15) Labs Laboratory Tests Test 12/20/17 01:20 12/20/17 01:22 White Blood Count 5.6 TH/MM3 Red Blood Count 5.02 MIL/MM3 Hemoglobin 15.9 GM/DL Hematocrit 46.7 % Mean Corpuscular Volume 92.9 FL Mean Corpuscular Hemoglobin 31.7 PG Mean Corpuscular Hemoglobin Concent 34.1 % Red Cell Distribution Width 14.7 % Platelet Count 168 TH/MM3 Mean Platelet Volume 7.9 FL Neutrophils (%) (Auto) 47.1 % Lymphocytes (%) (Auto) 39.3 % Monocytes (%) (Auto) 10.2 % Eosinophils (%) (Auto) 1.6 % Basophils (%) (Auto) 1.8 % Neutrophils # (Auto) 2.6 TH/MM3 Lymphocytes # (Auto) 2.2 TH/MM3 Monocytes # (Auto) 0.6 TH/MM3 Eosinophils # (Auto) 0.1 TH/MM3 Basophils # (Auto) 0.1 TH/MM3 CBC Comment DIFF FINAL Differential Comment Blood Urea Nitrogen 9 MG/DL Creatinine 0.90 MG/DL Random Glucose 81 MG/DL Total Protein 8.6 GM/DL Albumin 3.8 GM/DL Calcium Level 8.7 MG/DL Alkaline Phosphatase 133 U/L Aspartate Amino Transf (AST/SGOT) 80 U/L Alanine Aminotransferase (ALT/SGPT) 36 U/L Total Bilirubin 0.4 MG/DL Sodium Level 143 MEQ/L Potassium Level 4.4 MEQ/L Chloride Level 104 MEQ/L Carbon Dioxide Level 31.0 MEQ/L Anion Gap 8 MEQ/L Estimat Glomerular Filtration Rate 85 ML/MIN Free Thyroxine 0.68 NG/DL Free Triiodothyronine (T3) pg/dL 2.92 PG/ML Thyroid Stimulating Hormone 3rd Gen 12.700 uIU/ML Valproic Acid (Depakene) Level 6 MCG/ML Ethyl Alcohol Level 299 MG/DL Urine Opiates Screen NEG Urine Barbiturates Screen NEG Urine Amphetamines Screen NEG Urine Benzodiazepines Screen NEG Urine Cocaine Screen NEG Urine Cannabinoids Screen NEG MDM Medical Record Reviewed: Yes Supervised Visit with MOODY: No Narrative Course Please see previous providers notes for complete history of present illness. This patient has been cleared by psychiatry. They recommended that he go to start which he is very agreeable to. He is denying any suicidal homicidal ideations. His lab work is suggestive of hypothyroidism. Recommended follow-up with a primary care physician to discuss treatment. He verbalizes understanding and agreement. Diagnosis Primary Impression: Alcohol intoxication Qualified Codes: F10.920 - Alcohol use, unspecified with intoxication, uncomplicated Additional Impressions: Encounter for medical clearance for patient hold Abnormal results of thyroid function studies Referrals: [facility] (Out patient) Medication Management [facility] Patient Instructions: General Instructions Departure Forms: Tests/Procedures Additional Instruction: As discussed, your lab work suggest a underactive thyroid gland which may require chronic lifelong treatment. You should follow-up with a primary care physician such as at [facility] for this. Med/Other Pt SpecificInfo: No Change to Meds Disposition: 01 DISCHARGE HOME Condition: Stable Raffaele Encarnacion December 20, 2017 07:30
[2017-12-20 07:50] VITALS: RESP 17; O2SAT 99
[2017-12-20 07:55] VITALS: BP 140/78; TEMP 97.8
== END 2017-12-20 07:57 | disposition home or self-care (01) ==
LOC: NEPD 00:43
DX: F10.129 Alcohol abuse with intoxication, unspecified (principal); R94.6 Abnormal results of thyroid function studies; F17.200 Nicotine dependence, unspecified, uncomplicated; J44.9 Chronic obstructive pulmonary disease, unspecified; F31.9 Bipolar disorder, unspecified; Y90.8 Blood alcohol level of 240 mg/100 ml or more; Z79.899 Other long term (current) drug therapy
CPT/HCPCS: 71045; 80053; 80164; 80307; 84439; 84443; 84481; 85025; 94640; 94664; 96361; 96374; 99284; J2930; J7030; J7626

== ENCOUNTER 2017-12-21 21:03 | Emergency (ER) | payer SELFPAY ==
[~2017-12-21] VITALS: Ht 167.6 cm; Wt 75.0 kg
[~2017-12-21 21:03] MED LIST changes: -PRED-503 PO; -ZITHTAB PO
[2017-12-21 21:38] VITALS: BP 128/78; PULSE 84; RESP 16; TEMP 98.1; O2SAT 94
[2017-12-22] MEDS ORDERED: predniSONE 50 MG TAB PO ONE (01:00)
[2017-12-22] MEDS: RESP: ALBUTEROL 2.5 MG/IPRATROPIUM 0.5 MG NEB (SCH) INH ×3 (01:00→01:16)
[2017-12-22] MEDS ORDERED: SODIUM CHLORIDE 0.9% FLUSH 10 ML FLUSH IVF PRN (01:00)
--- NOTE | 2017-12-22 01:02 | PD ---
HPI Chief Complaint: Medication Refill Request Time Seen by Provider: 00:58 Travel History International Travel<30 days: No Contact w/Intl Traveler<30days: No Traveled to known affect area: No History of Present Illness HPI 62-year-old male with history of COPD, alcoholism, here for evaluation of shortness of breath and requesting a refill of his asthma medications. He states he has been out of his albuterol inhaler for a while. Shortness of breath is at rest, worse with exertion. It is been going on for the last couple of days. He has had a cough productive of yellowish sputum. No chest pain. He smokes about a pack of cigarettes daily. PFSH Past Medical History ADD: Yes ADHD: Yes Asthma: Yes Bipolar Disorder: Yes Anxiety: Yes Depression: Yes COPD: Yes Implanted Vascular Access Dvce: Yes Musculoskeletal: Yes Psychiatric: Yes (BIPOLAR, ADD, ADHD, ) Respiratory: Yes Immunizations Current: Yes Sleep Apnea: Yes Past Surgical History Abdominal Surgery: No Body Medical Devices: STAINLESS STEEL IN RIGHT EYE SOCKET, JAW PLAT, PIN IN RIGHT HIP. Cardiac Surgery: No Ear Surgery: No Endocrine Surgery: No Eye Surgery: No Genitourinary Surgery: No Gynecologic Surgery: No Hysterectomy: No Neurologic Surgery: Yes (DIGITAL NERVE SURGERY RIGHT HAND. ) Oral Surgery: Yes (FX PALATE. ) Thoracic Surgery: No Tonsillectomy: Yes Other Surgery: Yes Social History Alcohol Use: Yes (DAILY) Tobacco Use: Yes (1-2 PPD) Substance Use: Yes (cocaine, hx heroin) Allergies-Medications (Allergen,Severity, Reaction): Coded Allergies: No Known Allergies (Verified Adverse Reaction, Unknown, 08/17/17) Reported Meds & Prescriptions Reported Meds & Active Scripts Active Prednisone 50 Mg Tab 50 Mg PO DAILY 4 Days Ventolin Hfa 18 GM Inh (Albuterol Sulfate) 90 Mcg/Act Aer 2 Puff INH Q4-6H PRN Compressor Nebulizer 1 Mis Mis Ea .ROUTE DIRECTED Use as directed Albuterol Neb (Albuterol Sulfate) 2.5 Mg/3 Ml Neb 2.5 Mg NEB Q4HR NEB PRN Ventolin Hfa 18 GM Inh (Albuterol Sulfate) 90 Mcg/Act Aer 1 Puff INH Q4H PRN Reported Wellbutrin Xl 24 HR (Bupropion HCl) 150 Mg Tab 150 Mg PO DAILY Seroquel (Quetiapine Fumarate) 100 Mg Tab 150 Mg PO HS Trazodone (Trazodone HCl) 150 Mg Tablet 150 Mg PO HS Depakote DR (Divalproex Sodium) 500 Mg Tabdr 500 Mg PO BID Review of Systems Except as stated in HPI: all other systems reviewed are Neg Physical Exam Narrative GENERAL: Well-developed, well-nourished, awake, alert, no apparent distress. SKIN: Focused skin assessment warm/dry. HEAD: Atraumatic. Normocephalic. EYES: Pupils equal and round. No scleral icterus. No injection or drainage. ENT: No nasal bleeding or discharge. Mucous membranes pink and moist. NECK: Trachea midline. No JVD. CARDIOVASCULAR: Regular rate and rhythm. RESPIRATORY: No accessory muscle use. Inspiratory and expiratory wheezes bilaterally. Speaking full sentences. GASTROINTESTINAL: Abdomen soft, non-tender, nondistended. Hepatic and splenic margins not palpable. MUSCULOSKELETAL: No obvious deformities. No clubbing. No cyanosis. No edema. NEUROLOGICAL: Awake and alert. No obvious cranial nerve deficits. Motor grossly within normal limits. Normal speech. PSYCHIATRIC: Appropriate mood and affect; insight and judgment normal. Data Data Last Documented VS Vital Signs Date Time Temp Pulse Resp B/P (MAP) Pulse Ox O2 Delivery O2 Flow Rate FiO2 12/22/17 06:30 86 18 130/76 (94) 95 Room Air 12/21/17 21:38 98.1 Orders Orders Influenzae A/B Antigen (12/22/17 01:00) Iv Access Insert/Monitor (12/22/17 01:00) Ecg Monitoring (12/22/17 01:00) Oximetry (12/22/17 01:00) Oxygen Administration (12/22/17 01:00) Chest, Single Ap (12/22/17 01:00) Sodium Chloride 0.9% Flush (Ns Flush) (12/22/17 01:00) Albuterol-Ipratropium Neb (Duoneb Neb) (12/22/17 01:00) Prednisone (Deltasone) (12/22/17 01:00) MDM Medical Decision Making Medical Screen Exam Complete: Yes Emergency Medical Condition: Yes Medical Record Reviewed: Yes Differential Diagnosis COPD exacerbation, pneumonia, pneumothorax, bronchitis Narrative Course Vital signs reviewed. Influenza is negative. Chest x-ray shows no acute cardia pulmonary disease. Patient was given 3 DuoNeb treatments and oral prednisone and on reassessment he is sleeping comfortably. His wheezes have resolved. He was never in significant respiratory distress while in the emergency department. He tells me that he drank alcohol throughout the day yesterday and is intoxicated. He will be allowed to sleep off his intoxication in the emergency department and once clinically sober will be discharged home with a prescription for albuterol and prednisone. PMD follow-up this week. 6:35 AM: The patient was allowed to sleep off his alcohol intoxication. On reassessment h he is sleeping comfortably in no respiratory distress. He is easily arousable. No withdrawal symptoms. He is walking with a steady gait. He is stable for discharge home and advised follow-up with [facility] as he was advised after being discharged 2 days ago from the emergency department. Diagnosis Primary Impression: COPD with exacerbation Additional Impression: Alcohol intoxication Qualified Codes: F10.920 - Alcohol use, unspecified with intoxication, uncomplicated Referrals: [facility] 3 days Additional Instructions: Follow-up with a primary care physician this week. Return to the emergency department for worsening symptoms or any other concerns. Scripts Prednisone (Prednisone) 50 Mg Tab 50 MG PO DAILY for 4 Days, #4 TAB 0 Refills Prov: Vaibhav Cervantes MD 12/22/17 Albuterol 18 GM Inh (Ventolin Hfa 18 GM Inh) 90 Mcg/Act Aer 2 PUFF INH Q4-6H Y for SHORTNESS OF BREATH, #1 INHALER 0 Refills Prov: Vaibhav Cervantes MD 12/22/17 Disposition: 01 DISCHARGE HOME Condition: Stable Vaibhav Cervantes MD December 22, 2017 01:02
[2017-12-22] MEDS ORDERED: BUPR150XL PO (01:03)
[2017-12-22 01:04] VITALS: BP 134/78; PULSE 82; RESP 20; O2SAT 95; O2SAT 96
--- NOTE | 2017-12-22 01:59 | RADRPT ---
EXAM DATE: 12/22/2017 1:57 AM EDT AGE/SEX: 62 years / Male INDICATIONS: Short of breath. CLINICAL DATA: This is the patient's initial encounter. Patient reports that signs and symptoms have been present for 1 day and indicates a pain score of Nonresponsive. MEDICAL/SURGICAL HISTORY: Non-responsive. Non-responsive. COMPARISON: [facility] – [place], CHEST SINGLE AP, 12/20/2017. . FINDINGS: The lungs are clear without infiltrate, nodule, or mass. There is no appreciable pleural effusion for technique. Heart and mediastinum are unremarkable. CONCLUSION: No acute cardiopulmonary disease. Electronically signed by: Denise Nieto MD 12/22/2017 1:58 AM EDT
[2017-12-22] MEDS ORDERED: VENTAER INH (02:06)
[2017-12-22] MEDS ORDERED: PRED50 PO (02:06)
[2017-12-22 05:08] VITALS: BP 128/75; PULSE 69; RESP 18; O2SAT 94
[2017-12-22 06:30] VITALS: BP 130/76; PULSE 86; RESP 18; O2SAT 95
== END 2017-12-22 06:54 | disposition home or self-care (01) ==
LOC: NEPE 21:03
DX: J44.1 Chronic obstructive pulmonary disease with (acute) exacerbation (principal); F10.129 Alcohol abuse with intoxication, unspecified; F17.210 Nicotine dependence, cigarettes, uncomplicated; F31.9 Bipolar disorder, unspecified; F90.9 Attention-deficit hyperactivity disorder, unspecified type
CPT/HCPCS: 71045; 87804; 94640; 94664; 99284; J7512

== ENCOUNTER 2018-01-11 10:51 | Emergency (ER) | payer SELFPAY ==
[~2018-01-11] VITALS: Ht 167.6 cm; Wt 75.0 kg
[~2018-01-11 10:51] MED LIST changes: +BUPR150XL PO; +PRED50 PO
[2018-01-11 10:54] VITALS: BP 147/79; PULSE 65; RESP 16; TEMP 97.8; O2SAT 99
[2018-01-11] MEDS ORDERED: IBUP1TAB7 PO (11:08)
[2018-01-11] MEDS ORDERED: BACT800T5 PO (11:08)
--- NOTE | 2018-01-11 11:09 | PD ---
HPI Chief Complaint: Bite or Sting Time Seen by Provider: 10:58 Travel History International Travel<30 days: No Contact w/Intl Traveler<30days: No Traveled to known affect area: No History of Present Illness HPI 62-year-old male presents emergency department with complaint of a possible spider bite/insect bite to the back of his right calf that occurred 2 days ago. He did not actually see anything bite him. Says he woke up with a pimple- like lesion to the back of his leg and it has worsened since. He denies history of MRSA. Denies fever, vomiting. Reports swelling to bilateral lower legs which is not new and unchanged. Reports paresthesias to bilateral feet, that is not new and unchanged. Otherwise denies loss of sensation, decreased range of motion, decreased strength to the affected extremity. Unknown tetanus status. Rates pain 10/10. Has not taken any medications or try treatments to alleviate his symptoms. No primary care provider. No known allergies. History of bipolar disorder. Otherwise denies other significant past medical history. Has no other medical complaints. No other modifying factors or associated signs and symptoms. PFSH Past Medical History ADD: Yes ADHD: Yes Asthma: Yes Bipolar Disorder: Yes Anxiety: Yes Depression: Yes COPD: Yes Implanted Vascular Access Dvce: Yes Musculoskeletal: Yes Psychiatric: Yes (BIPOLAR, ADD, ADHD, ) Respiratory: Yes Immunizations Current: Yes Sleep Apnea: Yes Past Surgical History Abdominal Surgery: No Body Medical Devices: STAINLESS STEEL IN RIGHT EYE SOCKET, JAW PLAT, PIN IN RIGHT HIP. Cardiac Surgery: No Ear Surgery: No Endocrine Surgery: No Eye Surgery: No Genitourinary Surgery: No Gynecologic Surgery: No Hysterectomy: No Neurologic Surgery: Yes (DIGITAL NERVE SURGERY RIGHT HAND. ) Oral Surgery: Yes (FX PALATE. ) Thoracic Surgery: No Tonsillectomy: Yes Other Surgery: Yes Social History Alcohol Use: Yes (DAILY) Tobacco Use: Yes (1-2 PPD) Substance Use: Yes (cocaine, hx heroin) Allergies-Medications (Allergen,Severity, Reaction): Coded Allergies: No Known Allergies (Verified Adverse Reaction, Unknown, 08/17/17) Reported Meds & Prescriptions Reported Meds & Active Scripts Active Ibuprofen 800 Mg Tab 800 Mg PO Q6HR PRN Bactrim DS (Sulfamethoxazole-Trimethoprim) 800-160 Mg Tab 1 Tab PO BID 10 Days Prednisone 50 Mg Tab 50 Mg PO DAILY 4 Days Ventolin Hfa 18 GM Inh (Albuterol Sulfate) 90 Mcg/Act Aer 2 Puff INH Q4-6H PRN Compressor Nebulizer 1 Mis Mis Ea .ROUTE DIRECTED Use as directed Albuterol Neb (Albuterol Sulfate) 2.5 Mg/3 Ml Neb 2.5 Mg NEB Q4HR NEB PRN Ventolin Hfa 18 GM Inh (Albuterol Sulfate) 90 Mcg/Act Aer 1 Puff INH Q4H PRN Reported Wellbutrin Xl 24 HR (Bupropion HCl) 150 Mg Tab 150 Mg PO DAILY Seroquel (Quetiapine Fumarate) 100 Mg Tab 150 Mg PO HS Trazodone (Trazodone HCl) 150 Mg Tablet 150 Mg PO HS Depakote DR (Divalproex Sodium) 500 Mg Tabdr 500 Mg PO BID Review of Systems Except as stated in HPI: all other systems reviewed are Neg Physical Exam Narrative GENERAL: Well-nourished, well-developed male patient, in no acute distress SKIN: Warm and dry. Area of erythema to the right calf with a pimple-like lesion in the middle; area of erythema is granulomatous tissue and is moist, without any noted drainage. No lymphangitis. Right lower extremity is supple and non-tense with 2+ pedal pulse and sensory intact and without erythema. HEAD: Atraumatic. Normocephalic. EYES: Pupils equal and round. No scleral icterus. No injection or drainage. ENT: Mucosa pink and moist. Airway patent. NECK: Trachea midline. CARDIOVASCULAR: Regular rate. RESPIRATORY: No accessory muscle use. GASTROINTESTINAL: Flat. MUSCULOSKELETAL: No obvious deformities. No clubbing. No cyanosis. No edema. NEUROLOGICAL: Awake and alert. Oriented 3. No obvious cranial nerve deficits. Motor grossly within normal limits. Normal speech. PSYCHIATRIC: Appropriate mood and affect; insight and judgment normal. Data Data Last Documented VS Vital Signs Date Time Temp Pulse Resp B/P (MAP) Pulse Ox O2 Delivery O2 Flow Rate FiO2 01/11/18 10:54 97.8 65 16 147/79 (101) 99 Orders Orders Wound Culture And Gram Stain (01/11/18 11:05) Wound Care (01/11/18 11:05) Tetanus-Diphther Tox Peds Inj (Tetanus-D (01/11/18 11:15) Sulfamet-Trimeth Ds 800-160 Mg (Bactrim (01/11/18 11:15) Ketorolac Inj (Toradol Inj) (01/11/18 11:15) Tetanus/Diphtheria Tox Adult (Tetanus/Di (01/11/18 11:15) Ed Discharge Order (01/11/18 11:39) [facility] Medical Decision Making Medical Screen Exam Complete: Yes Emergency Medical Condition: Yes Medical Record Reviewed: Yes Differential Diagnosis Infected insect bite, wound infection, cellulitis, MRSA Narrative Course 62-year-old male with wound infection and cellulitis to his right calf. Tetanus updated in the ER. Area of cellulitis marked with a surgical marker. No lymphangitis. Patient says he is homeless and cannot afford antibiotics to need something that is free. Bactrim, tetanus, Toradol, wound care provided in the ER. Bactrim and ibuprofen prescribed for home. Instructed patient to follow up with primary care provider. Patient verbalizes understanding and agreement with treatment plan. Patient is medically cleared and stable for discharge. Discussed reasons to return to the emergency department. Patient agrees with treatment plan. The patients vital signs are stable and the patient is stable for outpatient follow-up and treatment. Patient discharged home, stable and in no acute distress. Diagnosis Primary Impression: Wound infection Additional Impression: Cellulitis Qualified Codes: L03.115 - Cellulitis of right lower limb Referrals: [facility] Primary Care Physician Patient Instructions: Cellulitis (ED), General Instructions, Insect Bite or Sting (ED), Wound Infection (ED) Additional Instructions: Complete full course of antibiotics Warm and/or cold compresses to the affected area Keep area clean and dry Ibuprofen or Tylenol as directed and as needed for pain and inflammation Topical antibiotic, such as Neosporin or bacitracin, as directed and as needed for wound care Keep area covered with a bandage Follow-up with primary care provider Return to emergency department immediately with worsening of symptoms Med/Other Pt SpecificInfo: Prescription(s) given Scripts Ibuprofen (Ibuprofen) 800 Mg Tab 800 MG PO Q6HR Y for PAIN, #30 TAB 0 Refills Prov: Mary Alice Mcpherson 01/11/18 Sulfamethoxazole-Trimethoprim (Bactrim DS) 800-160 Mg Tab 1 TAB PO BID for Infection for 10 Days, #20 TAB 0 Refills Prov: Mary Alice Mcpherson 01/11/18 Disposition: 01 DISCHARGE HOME Condition: Stable Mary Alice Mcpherson Jan 11, 2018 11:09
[2018-01-11] MEDS ORDERED: TETANUS/DIPHTHERIA TOXOID PEDIATRIC 0.5 ML VIAL IM ONE (11:15)
[2018-01-11] MEDS ORDERED: KETOROLAC TROMETHAMINE 60 MG/2 ML (IM) VIAL IM ONE (11:15)
[2018-01-11] MEDS ORDERED: TETANUS/DIPHTHERIA TOXOID ADULT 0.5 ML VIAL IM ONE (11:15)
[2018-01-11] MEDS ORDERED: SULFAMETHOXAZOLE-TRIMETHOPRIM DS 800-160 MG TAB PO ONE (11:15)
== END 2018-01-11 12:00 | disposition home or self-care (01) ==
LOC: NEPK 10:51
DX: S81.801A Unspecified open wound, right lower leg, initial encounter (principal); L03.115 Cellulitis of right lower limb; B95.0 Streptococcus, group A, as the cause of diseases classified elsewhere; X58.XXXA Exposure to other specified factors, initial encounter; B95.61 Methicillin susceptible Staphylococcus aureus infection as the cause of diseases classified elsewhere; F31.9 Bipolar disorder, unspecified; F90.9 Attention-deficit hyperactivity disorder, unspecified type; F41.9 Anxiety disorder, unspecified; J44.9 Chronic obstructive pulmonary disease, unspecified; G47.30 Sleep apnea, unspecified; F17.200 Nicotine dependence, unspecified, uncomplicated; F14.90 Cocaine use, unspecified, uncomplicated; F11.90 Opioid use, unspecified, uncomplicated; Z59.0 Homelessness; Z23 Encounter for immunization
CPT/HCPCS: 86403; 87070; 87186; 90471; 90714; 96372; 99283; J1885